=== PATIENT | male | born 1950 | race Caucasian/White ===

== ENCOUNTER 2019-07-14 13:23 | Inpatient (IN) ==
[2019-07-14] MEDS ORDERED: Furosemide 40 MG/4 ML VIAL IVP ONE (13:43)
[2019-07-14] MEDS ORDERED: predniSONE 20 MG TABLET PO ONE (13:43)
[2019-07-14 14:21] LABS: Bilirubin,Urine Negative (Negative); Blood,Urine Trace (Negative); Clarity,Urine Cloudy (Clear); Color,Urine Yellow (Yellow); Glucose,Urine (UA) 500 mg/dL (Normal); Ketones,Urine Negative (Negative); Leukocyte Esterase,Urine Negative (Negative); Nitrite,Urine Negative (Negative); Protein,Urine >=1000 mg/dL (Neg-Trace); Specific Gravity,Urine > 1.030 (1.010-1.025); Urobilinogen,Urine Normal (Normal)
[2019-07-14 14:25] LABS: Hyaline Casts,Urine Moderate per lpf (None-Few); Squamous Epithelial Cell,Urine Many per lpf (None-Few); WBC,Urine 15-30 per hpf (0-3)
[2019-07-14 14:46] LABS: Basophils # 0.1 K/mcL (0.0-0.2); Basophils % 0.6 %; Eosinophils # 0.3 K/mcL (0.0-0.6); Eosinophils % 3.2 %; Hematocrit 37.5 % (37.5-50.1); Hemoglobin 12.3 g/dL (12.9-16.9); Immature Granulocytes % 0.3 % (0-4); Lymphocytes # 1.5 K/mcL (0.6-4.6); Mean Corpuscular HGB Conc 32.8 g/dL (31.6-35.5); Mean Corpuscular Hemoglobin 32.2 pg (28.0-33.3); Mean Corpuscular Volume 98.2 fL (83.0-100.0); Mean Platelet Volume 10.1 fL (9.4-12.4); Monocytes # 0.9 K/mcL (0.0-1.3); Neutrophils # 6.6 K/mcL (1.6-8.9); Platelet Count 243 K/mcL (140-400); Red Blood Count 3.82 M/mcL (4.19-5.50); Red Cell Distribution Width 13.9 % (11.5-14.5); Segmented Neutrophils % 69.9 %; White Blood Count 9.4 K/mcL (4.3-11.1)
[2019-07-14 15:16] LABS: Bacteria,Urine Moderate per hpf (None-Few); Granular Casts,Urine Few per lpf (None Seen)
[2019-07-14 15:17] LABS: Albumin 2.2 g/dL (3.5-5.7); Albumin/Globulin Ratio 0.7 (1.1-2.2); Bilirubin,Total 0.1 mg/dL (0.3-1.0); Calcium 7.9 mg/dL (8.6-10.3); Globulin 3.1 g/dL (2.4-3.5); Potassium 4.6 mEq/L (3.5-5.1); Total Protein 5.3 g/dL (6.4-8.9)
[2019-07-14 15:21] LABS: RBC,Urine 0-3 per hpf (0-3)
[2019-07-14 15:23] LABS: Protein/Creatinine Ratio,Urine 28.9 mg/mg (0.00-0.20)
[2019-07-14] MEDS ORDERED: Naloxone 0.4 MG/ML INJ IVP PRN (16:06)
[2019-07-14] MEDS ORDERED: hydrALAZINE 25 MG TABLET PO PRN (16:08)
[2019-07-14] MEDS ORDERED: *HR* Labetalol 20 MG/4 ML SYRINGE IVP ONE (16:11)
[2019-07-14] MEDS: *HR* Heparin 5,000 UNIT/ML VIAL SQ SCH (18:02)
[2019-07-14] MEDS ORDERED: Perflutren Lipid Microsphere 1.3 ML in 0.9 % Sodium Chloride 8.7 ML IVP ONE (20:52)
[2019-07-14] MEDS ORDERED: Insulin DETEMIR 100 UNIT/ML X5UNITS SQ SCH (21:00)
[2019-07-14] MEDS: hydrALAZINE 25 MG TABLET PO SCH (21:05)
[2019-07-14] MEDS: Insulin DETEMIR 100 UNIT/ML X5UNITS SQ SCH (21:06)
[2019-07-14] MEDS: BuPROPion SR (12 HR) 100 MG TABLET PO SCH (21:06)
[2019-07-15] MEDS ORDERED: *HR* Metoprolol 5 MG/5 ML VIAL IVP ONE (00:43)
[2019-07-15] MEDS: *HR* HYDROcodone/Acet 5/325 mg TABLET PO PRN (01:09)
[2019-07-15 04:41] LABS: Basophils % 0.3 %; Hematocrit 37.8 % (37.5-50.1); Hemoglobin 12.2 g/dL (12.9-16.9); Immature Granulocytes % 0.4 % (0-4); Lymphocytes % 14.3 %; Mean Corpuscular HGB Conc 32.3 g/dL (31.6-35.5); Mean Corpuscular Hemoglobin 32.2 pg (28.0-33.3); Mean Corpuscular Volume 99.7 fL (83.0-100.0); Mean Platelet Volume 10.3 fL (9.4-12.4); Monocytes # 0.3 K/mcL (0.0-1.3); Monocytes % 3.8 %; Neutrophils # 5.9 K/mcL (1.6-8.9); Platelet Count 268 K/mcL (140-400); Red Blood Count 3.79 M/mcL (4.19-5.50); Red Cell Distribution Width 13.6 % (11.5-14.5); Segmented Neutrophils % 81.2 %; White Blood Count 7.2 K/mcL (4.3-11.1)
[2019-07-15 05:00] LABS: Calcium 7.6 mg/dL (8.6-10.3); Phosphorous 3.4 mg/dL (2.7-4.5); Potassium 4.7 mEq/L (3.5-5.1)
[2019-07-15] MEDS: *HR* Heparin 5,000 UNIT/ML VIAL SQ SCH ×2 (05:41→16:57)
[2019-07-15] MEDS ORDERED: Dextrose Gel 15 GM/37.5 ML TUBE PO PRN ×2 (07:38)
[2019-07-15] MEDS ORDERED: *HR* Dextrose 50 % in Water (Syg) 50 ML SYRINGE IVP PRN (07:38)
[2019-07-15] MEDS ORDERED: D5% in Water 1,000 ML IVC PRN (07:38)
[2019-07-15] MEDS: predniSONE 20 MG TABLET PO SCH (07:42)
[2019-07-15] MEDS: Aspirin Enteric Coated 81 MG Tablet PO SCH (07:42)
[2019-07-15] MEDS: BuPROPion SR (12 HR) 100 MG TABLET PO SCH ×2 (07:42→15:43)
[2019-07-15] MEDS: hydrALAZINE 25 MG TABLET PO SCH ×3 (07:42→21:30)
[2019-07-15] MEDS ORDERED: Albumin 25% 25gram/100mL 25 GM/100 ML IV.SOLN IVPB ONE (07:48)
[2019-07-15] MEDS ORDERED: EPA PO SCH (09:00)
[2019-07-15] MEDS ORDERED: amLODIPine 5 MG TABLET PO SCH (09:00)
[2019-07-15] MEDS ORDERED: OMEGA PO SCH (09:00)
[2019-07-15] MEDS ORDERED: DHA PO SCH (09:00)
[2019-07-15] MEDS ORDERED: FISH OIL PO SCH (09:00)
[2019-07-15] MEDS ORDERED: [UNRECOGNIZED DRUG - OTHER] PO SCH (09:00)
[2019-07-15] MEDS: Furosemide 40 MG/4 ML VIAL IVP SCH (09:29)
[2019-07-15] MEDS: Insulin DETEMIR 100 UNIT/ML X5UNITS SQ SCH (21:30)
[2019-07-16] MEDS: *HR* HYDROcodone/Acet 5/325 mg TABLET PO PRN (00:20)
[2019-07-16] MEDS: *HR* Heparin 5,000 UNIT/ML VIAL SQ SCH ×2 (05:54→17:03)
[2019-07-16] MEDS: predniSONE 20 MG TABLET PO SCH (07:51)
[2019-07-16] MEDS: Ergocalciferol (VIT D2) 50,000 UNIT (1.25MG) CAP PO SCH (07:51)
[2019-07-16] MEDS: hydrALAZINE 25 MG TABLET PO SCH ×3 (07:51→20:09)
[2019-07-16] MEDS: amLODIPine 5 MG TABLET PO SCH (07:51)
[2019-07-16] MEDS: Aspirin Enteric Coated 81 MG Tablet PO SCH (07:51)
[2019-07-16] MEDS: Furosemide 40 MG/4 ML VIAL IVP SCH (07:52)
[2019-07-16] MEDS: BuPROPion SR (12 HR) 100 MG TABLET PO SCH ×2 (07:55→16:06)
[2019-07-16 11:58] LABS: Calcium 7.7 mg/dL (8.6-10.3); Potassium 4.8 mEq/L (3.5-5.1)
[2019-07-16] MEDS ORDERED: NON-FORMULARY MEDICATION 1 EACH EACH (Dulaglutide [Trulicity] 1.5 MG) SQ SCH (16:08)
[2019-07-16] MEDS: Albumin 25% 25gram/100mL 25 GM/100 ML IV.SOLN IVPB SCH (17:14)
[2019-07-16] MEDS: Insulin DETEMIR 100 UNIT/ML X5UNITS SQ SCH (20:10)
[2019-07-17] MEDS: Albumin 25% 25gram/100mL 25 GM/100 ML IV.SOLN IVPB SCH ×3 (00:15→16:01)
[2019-07-17] MEDS: *HR* Heparin 5,000 UNIT/ML VIAL SQ SCH ×2 (05:49→16:00)
[2019-07-17 06:31] LABS: Albumin 2.7 g/dL (3.5-5.7); Albumin/Globulin Ratio 1.1 (1.1-2.2); Bilirubin,Total 0.2 mg/dL (0.3-1.0); Calcium 7.6 mg/dL (8.6-10.3); Globulin 2.5 g/dL (2.4-3.5); Potassium 4.5 mEq/L (3.5-5.1); Total Protein 5.2 g/dL (6.4-8.9)
[2019-07-17] MEDS: hydrALAZINE 25 MG TABLET PO SCH ×3 (07:30→20:04)
[2019-07-17] MEDS: predniSONE 20 MG TABLET PO SCH (07:31)
[2019-07-17] MEDS: amLODIPine 5 MG TABLET PO SCH (07:31)
[2019-07-17] MEDS: Furosemide 40 MG/4 ML VIAL IVP SCH ×2 (07:31→07:43)
[2019-07-17] MEDS: Aspirin Enteric Coated 81 MG Tablet PO SCH (07:31)
[2019-07-17] MEDS: BuPROPion SR (12 HR) 100 MG TABLET PO SCH ×2 (07:34→16:00)
[2019-07-17] MEDS: *HR* HYDROcodone/Acet 5/325 mg TABLET PO PRN (09:57)
[2019-07-17] MEDS ORDERED: Dextrose Gel 15 GM/37.5 ML TUBE PO PRN ×2 (16:32)
[2019-07-17] MEDS ORDERED: *HR* Dextrose 50 % in Water (Syg) 50 ML SYRINGE IVP PRN (16:32)
[2019-07-17] MEDS ORDERED: D5% in Water 1,000 ML IVC PRN (16:32)
[2019-07-17] MEDS: Insulin LISPRO 300 UNITS/3 ML VIAL SQ SCH (19:31)
[2019-07-17] MEDS: Insulin DETEMIR 100 UNIT/ML X5UNITS SQ SCH (20:04)
[2019-07-18 03:30] LABS: ABG Base Excess -7 mEq/L (-2 to 3); ABG HCO3 17 mEq/L (21-27); ABG Oxygen Saturation 94 % (95-98); ABG PCO2 31 mmHg (35-45); ABG PH 7.36 pH Units (7.32-7.45); ABG PO2 74 mmHg (85-104); ABG TCO2 18 mEq/L (20-26)
[2019-07-18] MEDS: Simethicone 80 MG TAB.CHEW PO PRN ×2 (03:43→22:35)
[2019-07-18 04:11] LABS: Adenovirus Not Detected (Not Detect); Bordetella Pertussis Not Detected (Not Detect); Chlamydophila pneumoniae Not Detected (Not Detect); Coronavirus 229E Not Detected (Not Detect); Coronavirus HKU1 Not Detected (Not Detect); Coronavirus NL63 Not Detected (Not Detect); Coronavirus OC43 Not Detected (Not Detect); Human Metapneumovirus Not Detected (Not Detect); Human Rhinovirus/Enterovirus Not Detected (Not Detect); Influenza A Subtype 2009 H1 Not Detected (Not Detect); Influenza A Untypeable Not Detected (Not Detect); Influenza B Not Detected (Not Detect); Mycoplasma pneumoniae Not Detected (Not Detect); Parainfluenza Virus 1 Not Detected (Not Detect); Parainfluenza Virus 2 Not Detected (Not Detect); Parainfluenza Virus 3 Not Detected (Not Detect); Parainfluenza Virus 4 Not Detected (Not Detect); Respiratory Syncytial Virus Not Detected (Not Detect)
[2019-07-18 04:58] LABS: Albumin 2.9 g/dL (3.5-5.7); Calcium 7.2 mg/dL (8.6-10.3); Phosphorous 4.1 mg/dL (2.7-4.5); Potassium 4.6 mEq/L (3.5-5.1)
[2019-07-18 05:08] LABS: Hematocrit 34.4 % (37.5-50.1); Hemoglobin 11.4 g/dL (12.9-16.9); Mean Corpuscular HGB Conc 33.1 g/dL (31.6-35.5); Mean Corpuscular Hemoglobin 31.8 pg (28.0-33.3); Mean Corpuscular Volume 96.1 fL (83.0-100.0); Mean Platelet Volume 10.1 fL (9.4-12.4); Platelet Count 310 K/mcL (140-400); Red Blood Count 3.58 M/mcL (4.19-5.50); Red Cell Distribution Width 13.9 % (11.5-14.5)
[2019-07-18] MEDS: *HR* Heparin 5,000 UNIT/ML VIAL SQ SCH ×2 (06:36→16:54)
[2019-07-18] MEDS: Insulin LISPRO 300 UNITS/3 ML VIAL SQ SCH ×3 (07:54→16:45)
[2019-07-18] MEDS ORDERED: Piperacillin/Tazobactam 3.375 GM in 0.9 % Sodium Chloride Mini Bag 100 ML IVPB SCH (08:00)
[2019-07-18] MEDS: BuPROPion SR (12 HR) 100 MG TABLET PO SCH ×2 (08:14→16:54)
[2019-07-18] MEDS: hydrALAZINE 25 MG TABLET PO SCH ×3 (08:14→20:48)
[2019-07-18] MEDS: Aspirin Enteric Coated 81 MG Tablet PO SCH (08:14)
[2019-07-18] MEDS: predniSONE 20 MG TABLET PO SCH (08:14)
[2019-07-18] MEDS: amLODIPine 5 MG TABLET PO SCH (08:14)
[2019-07-18] MEDS: Albumin 25% 25gram/100mL 25 GM/100 ML IV.SOLN IVPB SCH ×2 (08:16)
[2019-07-18] MEDS: Piperacillin/Tazobactam 3.375 GM in 0.9 % Sodium Chloride Mini Bag 100 ML IVPB SCH ×2 (14:59→23:52)
[2019-07-18] MEDS: Psyllium 1 PACKET POWD.PACK PO SCH ×2 (14:59→21:00)
[2019-07-18] MEDS ORDERED: Insulin DETEMIR 100 UNIT/ML X5UNITS SQ SCH (21:00)
[2019-07-18] MEDS: *HR* HYDROcodone/Acet 5/325 mg TABLET PO PRN (22:34)
[2019-07-19] MEDS: Simethicone 80 MG TAB.CHEW PO PRN ×2 (04:08→21:11)
[2019-07-19 04:41] LABS: Hematocrit 35.5 % (37.5-50.1); Hemoglobin 11.9 g/dL (12.9-16.9); Mean Corpuscular HGB Conc 33.5 g/dL (31.6-35.5); Mean Corpuscular Hemoglobin 31.6 pg (28.0-33.3); Mean Corpuscular Volume 94.2 fL (83.0-100.0); Mean Platelet Volume 10.3 fL (9.4-12.4); Platelet Count 324 K/mcL (140-400); Red Blood Count 3.77 M/mcL (4.19-5.50); White Blood Count 12.8 K/mcL (4.3-11.1)
[2019-07-19 05:00] LABS: Albumin 2.7 g/dL (3.5-5.7); Phosphorous 4.7 mg/dL (2.7-4.5)
[2019-07-19] MEDS: *HR* Heparin 5,000 UNIT/ML VIAL SQ SCH ×2 (06:00→18:02)
[2019-07-19] MEDS: *HR* HYDROcodone/Acet 5/325 mg TABLET PO PRN ×2 (06:03→16:53)
[2019-07-19] MEDS: Psyllium 1 PACKET POWD.PACK PO SCH ×3 (08:40→21:09)
[2019-07-19] MEDS: hydrALAZINE 25 MG TABLET PO SCH ×3 (08:43→21:05)
[2019-07-19] MEDS: Aspirin Enteric Coated 81 MG Tablet PO SCH (08:44)
[2019-07-19] MEDS: amLODIPine 5 MG TABLET PO SCH (08:44)
[2019-07-19] MEDS: predniSONE 20 MG TABLET PO SCH (08:44)
[2019-07-19] MEDS: Piperacillin/Tazobactam 3.375 GM in 0.9 % Sodium Chloride Mini Bag 100 ML IVPB SCH ×2 (08:47→18:13)
[2019-07-19] MEDS: Insulin LISPRO 300 UNITS/3 ML VIAL SQ SCH ×3 (08:48→16:46)
[2019-07-19] MEDS: BuPROPion SR (12 HR) 100 MG TABLET PO SCH ×2 (08:51→18:12)
[2019-07-19] MEDS ORDERED: 0.9 % Sodium Chloride 250 ML IVC PRN (12:27)
[2019-07-19] MEDS ORDERED: *HR* Heparin 10,000 UNIT/10 ML VIAL IV PRN (12:27)
[2019-07-19] MEDS ORDERED: 0.9 % Sodium Chloride 1,000 ML PRIME SCH (12:30)
[2019-07-19] MEDS ORDERED: Ondansetron 4 MG/2 ML VIAL ONE (13:24)
[2019-07-19] MEDS: Ondansetron 4 MG/2 ML VIAL IVP PRN (13:40)
[2019-07-19 13:49] LABS: Hepatitis B Surface Antibody 3.92 mIU/mL
[2019-07-19 14:00] LABS: Hepatitis B Surface Antigen Nonreactive (Nonreactive)
[2019-07-19] MEDS ORDERED: traMADol 50 MG TABLET PO ONE (20:16)
[2019-07-19] MEDS: Insulin DETEMIR 100 UNIT/ML X5UNITS SQ SCH (21:30)
[2019-07-20] MEDS: Piperacillin/Tazobactam 3.375 GM in 0.9 % Sodium Chloride Mini Bag 100 ML IVPB SCH ×4 (00:47→23:58)
[2019-07-20] MEDS: Simethicone 80 MG TAB.CHEW PO PRN ×2 (00:57→11:30)
[2019-07-20] MEDS: Ondansetron 4 MG/2 ML VIAL IVP PRN (01:05)
[2019-07-20] MEDS: *HR* Heparin 5,000 UNIT/ML VIAL SQ SCH ×2 (04:23→16:35)
[2019-07-20 04:53] LABS: Hematocrit 35.2 % (37.5-50.1); Hemoglobin 11.6 g/dL (12.9-16.9); Mean Corpuscular Hemoglobin 31.9 pg (28.0-33.3); Mean Corpuscular Volume 96.7 fL (83.0-100.0); Mean Platelet Volume 10.4 fL (9.4-12.4); Platelet Count 307 K/mcL (140-400); Red Blood Count 3.64 M/mcL (4.19-5.50); Red Cell Distribution Width 13.9 % (11.5-14.5); White Blood Count 12.3 K/mcL (4.3-11.1)
[2019-07-20 05:08] LABS: Albumin 2.5 g/dL (3.5-5.7)
[2019-07-20] MEDS ORDERED: *HR* Heparin 10,000 UNIT/10 ML VIAL IV PRN (07:35)
[2019-07-20] MEDS ORDERED: 0.9 % Sodium Chloride 250 ML IVC PRN (07:35)
[2019-07-20] MEDS ORDERED: 0.9 % Sodium Chloride 1,000 ML PRIME SCH (07:45)
[2019-07-20] MEDS: Insulin LISPRO 300 UNITS/3 ML VIAL SQ SCH ×3 (07:51→16:35)
[2019-07-20] MEDS: Aspirin Enteric Coated 81 MG Tablet PO SCH (07:51)
[2019-07-20] MEDS: predniSONE 20 MG TABLET PO SCH (07:51)
[2019-07-20] MEDS: amLODIPine 5 MG TABLET PO SCH (07:51)
[2019-07-20] MEDS: hydrALAZINE 25 MG TABLET PO SCH ×3 (07:51→21:16)
[2019-07-20] MEDS: Psyllium 1 PACKET POWD.PACK PO SCH ×3 (07:52→21:18)
[2019-07-20] MEDS: BuPROPion SR (12 HR) 100 MG TABLET PO SCH ×2 (07:58→16:34)
[2019-07-20] MEDS: Insulin DETEMIR 100 UNIT/ML X5UNITS SQ SCH (21:17)
[2019-07-21 04:50] LABS: Hematocrit 32.8 % (37.5-50.1); Hemoglobin 11.1 g/dL (12.9-16.9); Mean Corpuscular HGB Conc 33.8 g/dL (31.6-35.5); Mean Corpuscular Hemoglobin 31.3 pg (28.0-33.3); Mean Corpuscular Volume 92.4 fL (83.0-100.0); Mean Platelet Volume 10.3 fL (9.4-12.4); Platelet Count 297 K/mcL (140-400); Red Blood Count 3.55 M/mcL (4.19-5.50); Red Cell Distribution Width 13.8 % (11.5-14.5); White Blood Count 13.4 K/mcL (4.3-11.1)
[2019-07-21 05:04] LABS: Albumin 2.4 g/dL (3.5-5.7); Calcium 6.7 mg/dL (8.6-10.3); Phosphorous 4.7 mg/dL (2.7-4.5); Potassium 4.5 mEq/L (3.5-5.1)
[2019-07-21] MEDS: *HR* Heparin 5,000 UNIT/ML VIAL SQ SCH ×2 (06:17→16:40)
[2019-07-21] MEDS: Insulin LISPRO 300 UNITS/3 ML VIAL SQ SCH ×3 (07:40→16:39)
[2019-07-21] MEDS: Aspirin Enteric Coated 81 MG Tablet PO SCH (07:41)
[2019-07-21] MEDS: Piperacillin/Tazobactam 3.375 GM in 0.9 % Sodium Chloride Mini Bag 100 ML IVPB SCH ×2 (07:41→15:45)
[2019-07-21] MEDS: hydrALAZINE 25 MG TABLET PO SCH ×3 (07:41→20:10)
[2019-07-21] MEDS: predniSONE 20 MG TABLET PO SCH (07:41)
[2019-07-21] MEDS: amLODIPine 5 MG TABLET PO SCH (07:42)
[2019-07-21] MEDS: Psyllium 1 PACKET POWD.PACK PO SCH ×3 (07:42→20:10)
[2019-07-21] MEDS: BuPROPion SR (12 HR) 100 MG TABLET PO SCH ×2 (07:44→16:40)
[2019-07-21] MEDS ORDERED: 0.9 % Sodium Chloride 250 ML IVC PRN (07:56)
[2019-07-21] MEDS ORDERED: *HR* Heparin 10,000 UNIT/10 ML VIAL IV PRN ×2 (07:56)
[2019-07-21 11:17] LABS: Alpha 2 Globulin (PEP) 1.24 g/dL (0.48-1.05); Beta Globulin (PEP) 0.48 g/dL (0.48-1.10)
[2019-07-21] MEDS: Simethicone 80 MG TAB.CHEW PO PRN (20:10)
[2019-07-21] MEDS: Insulin DETEMIR 100 UNIT/ML X5UNITS SQ SCH (20:19)
[2019-07-22] MEDS: Piperacillin/Tazobactam 3.375 GM in 0.9 % Sodium Chloride Mini Bag 100 ML IVPB SCH ×4 (00:40→23:46)
[2019-07-22] MEDS: Simethicone 80 MG TAB.CHEW PO PRN ×3 (00:43→22:04)
[2019-07-22] MEDS: *HR* Heparin 5,000 UNIT/ML VIAL SQ SCH ×2 (05:24→17:31)
[2019-07-22 05:50] LABS: Hematocrit 32.6 % (37.5-50.1); Hemoglobin 10.9 g/dL (12.9-16.9); Mean Corpuscular HGB Conc 33.4 g/dL (31.6-35.5); Mean Corpuscular Hemoglobin 31.5 pg (28.0-33.3); Mean Corpuscular Volume 94.2 fL (83.0-100.0); Mean Platelet Volume 10.4 fL (9.4-12.4); Platelet Count 271 K/mcL (140-400); Red Blood Count 3.46 M/mcL (4.19-5.50); Red Cell Distribution Width 13.8 % (11.5-14.5)
[2019-07-22 06:21] LABS: Calcium 6.9 mg/dL (8.6-10.3); Potassium 4.2 mEq/L (3.5-5.1)
[2019-07-22] MEDS: Insulin LISPRO 300 UNITS/3 ML VIAL SQ SCH ×3 (08:17→17:21)
[2019-07-22] MEDS: Psyllium 1 PACKET POWD.PACK PO SCH (08:21)
[2019-07-22] MEDS: amLODIPine 5 MG TABLET PO SCH (08:39)
[2019-07-22] MEDS: predniSONE 20 MG TABLET PO SCH (08:39)
[2019-07-22] MEDS: Aspirin Enteric Coated 81 MG Tablet PO SCH (08:39)
[2019-07-22] MEDS: hydrALAZINE 25 MG TABLET PO SCH ×3 (08:39→21:20)
[2019-07-22] MEDS: BuPROPion SR (12 HR) 100 MG TABLET PO SCH ×2 (08:40→17:20)
[2019-07-22 09:53] LABS: IFE Reflexed IFE Done
[2019-07-22 09:54] LABS: Immunoglobulin A 238 mg/dL (68-408); Immunoglobulin G 262 mg/dL (768-1632); Immunoglobulin M 83 mg/dL (35-263)
[2019-07-22 17:53] LABS: Protein/Creatinine Ratio,Urine 19.62 mg/mg (0.00-0.20)
[2019-07-22] MEDS: Insulin DETEMIR 100 UNIT/ML X5UNITS SQ SCH (21:21)
[2019-07-23 04:57] LABS: Basophils % 0.2 %; Hematocrit 30.8 % (37.5-50.1); Hemoglobin 10.2 g/dL (12.9-16.9); Immature Granulocytes % 1.1 % (0-4); Lymphocytes % 7.9 %; Mean Corpuscular HGB Conc 33.1 g/dL (31.6-35.5); Mean Corpuscular Hemoglobin 31.8 pg (28.0-33.3); Mean Platelet Volume 10.9 fL (9.4-12.4); Monocytes # 1.3 K/mcL (0.0-1.3); Neutrophils # 10.6 K/mcL (1.6-8.9); Platelet Count 261 K/mcL (140-400); Red Blood Count 3.21 M/mcL (4.19-5.50); Red Cell Distribution Width 13.7 % (11.5-14.5); Segmented Neutrophils % 80.8 %; White Blood Count 13.1 K/mcL (4.3-11.1)
[2019-07-23 05:05] LABS: Calcium 6.8 mg/dL (8.6-10.3); Potassium 4.3 mEq/L (3.5-5.1)
[2019-07-23] MEDS: Simethicone 80 MG TAB.CHEW PO PRN (05:19)
[2019-07-23] MEDS: *HR* Heparin 5,000 UNIT/ML VIAL SQ SCH ×2 (05:19→16:54)
[2019-07-23] MEDS: Insulin LISPRO 300 UNITS/3 ML VIAL SQ SCH ×3 (08:03→16:41)
[2019-07-23] MEDS: amLODIPine 5 MG TABLET PO SCH (08:15)
[2019-07-23] MEDS: BuPROPion SR (12 HR) 100 MG TABLET PO SCH ×2 (08:16→16:38)
[2019-07-23] MEDS: predniSONE 20 MG TABLET PO SCH (08:16)
[2019-07-23] MEDS: hydrALAZINE 25 MG TABLET PO SCH ×3 (08:16→21:28)
[2019-07-23] MEDS: Aspirin Enteric Coated 81 MG Tablet PO SCH (08:16)
[2019-07-23] MEDS: Psyllium 1 PACKET POWD.PACK PO SCH (08:17)
[2019-07-23] MEDS: Piperacillin/Tazobactam 3.375 GM in 0.9 % Sodium Chloride Mini Bag 100 ML IVPB SCH ×2 (08:18→21:29)
[2019-07-23] MEDS: Ergocalciferol (VIT D2) 50,000 UNIT (1.25MG) CAP PO SCH (08:25)
[2019-07-23] MEDS ORDERED: *HR* Heparin 10,000 UNIT/10 ML VIAL IV PRN ×2 (08:32)
[2019-07-23] MEDS ORDERED: 0.9 % Sodium Chloride 250 ML IVC PRN (08:32)
[2019-07-23] MEDS: Insulin DETEMIR 100 UNIT/ML X5UNITS SQ SCH (21:28)
[2019-07-24] MEDS: *HR* Heparin 5,000 UNIT/ML VIAL SQ SCH ×2 (06:12→17:22)
[2019-07-24] MEDS: predniSONE 20 MG TABLET PO SCH (08:20)
[2019-07-24] MEDS: hydrALAZINE 25 MG TABLET PO SCH ×3 (08:20→21:17)
[2019-07-24] MEDS: BuPROPion SR (12 HR) 100 MG TABLET PO SCH ×2 (08:20→17:22)
[2019-07-24] MEDS: amLODIPine 5 MG TABLET PO SCH (08:20)
[2019-07-24] MEDS: Psyllium 1 PACKET POWD.PACK PO SCH (08:21)
[2019-07-24] MEDS: Piperacillin/Tazobactam 3.375 GM in 0.9 % Sodium Chloride Mini Bag 100 ML IVPB SCH ×2 (08:21→21:18)
[2019-07-24] MEDS: Insulin LISPRO 300 UNITS/3 ML VIAL SQ SCH ×3 (08:21→17:22)
[2019-07-24] MEDS ORDERED: traZODone 50 MG TABLET PO SCH (21:00)
[2019-07-24] MEDS: Insulin DETEMIR 100 UNIT/ML X5UNITS SQ SCH (21:17)
[2019-07-25 04:09] LABS: Immature Platelets 5.5 % (1.1-6.1); Mean Corpuscular Hemoglobin 33.3 pg (28.0-33.3); Mean Platelet Volume 11.3 fL (9.4-12.4); Platelet Count 203 K/mcL (140-400); Red Blood Count 1.47 M/mcL (4.19-5.50); White Blood Count 19.1 K/mcL (4.3-11.1)
[2019-07-25 04:36] LABS: Blood Urea Nitrogen > 130 mg/dL (8-23); Calcium 6.1 mg/dL (8.6-10.3); Carbon Dioxide 22 mEq/L (23-29); Chloride 99 mEq/L (98-107); Glucose 351 mg/dL (70-105); Potassium 4.6 mEq/L (3.5-5.1); Sodium 131 mEq/L (136-145); eGFR For African Americans 11 (> 60); eGFR For Non-African Americans 9 (> 60)
[2019-07-25 04:38] LABS: Hematocrit 14.4 % (37.5-50.1); Hemoglobin 4.9 g/dL (12.9-16.9)
[2019-07-25 05:15] LABS: Red Cell Distribution Width 13.9 % (11.5-14.5)
[2019-07-25 05:17] LABS: Mean Corpuscular HGB Conc 32.9 g/dL (31.6-35.5); Mean Corpuscular Volume 97.3 fL (83.0-100.0); Mean Platelet Volume 11.8 fL (9.4-12.4); Platelet Count 196 K/mcL (140-400); White Blood Count 19.7 K/mcL (4.3-11.1)
[2019-07-25 05:41] LABS: Hematocrit 14.6 % (37.5-50.1); Hemoglobin 4.8 g/dL (12.9-16.9)
[2019-07-25] MEDS: *HR* Heparin 5,000 UNIT/ML VIAL SQ SCH (05:49)
[2019-07-25 06:11] LABS: Basophils # 0.2 K/mcL (0.0-0.2); Monocytes # 1.4 K/mcL (0.0-1.3); Neutrophils # 16.2 K/mcL (1.6-8.9); Platelet Estimate Normal (Normal)
[2019-07-25 06:15] LABS: Basophils # 0.2 K/mcL (0.0-0.2); Lymphocytes # 1.3 K/mcL (0.6-4.6); Monocytes # 1.3 K/mcL (0.0-1.3); Neutrophils # 16.2 K/mcL (1.6-8.9)
[2019-07-25 06:16] LABS: Platelet Estimate Normal (Normal)
[2019-07-25 06:26] LABS: Mean Corpuscular HGB Conc 33.6 g/dL (31.6-35.5)
[2019-07-25 06:27] LABS: Mean Corpuscular Hemoglobin 32.8 pg (28.0-33.3); Mean Corpuscular Volume 97.8 fL (83.0-100.0); Mean Platelet Volume 11.9 fL (9.4-12.4); Nucleated Red Blood Cells 0.3 /100 WBC (0); Platelet Count 201 K/mcL (140-400); Red Blood Count 1.37 M/mcL (4.19-5.50); Red Cell Distribution Width 14.1 % (11.5-14.5); White Blood Count 18.9 K/mcL (4.3-11.1)
[2019-07-25 06:41] LABS: Hematocrit 13.4 % (37.5-50.1); Hemoglobin 4.5 g/dL (12.9-16.9)
[2019-07-25 07:16] LABS: Lymphocytes # 2.5 K/mcL (0.6-4.6); Monocytes # 0.6 K/mcL (0.0-1.3); Neutrophils # 15.9 K/mcL (1.6-8.9)
[2019-07-25 07:17] LABS: Platelet Estimate Normal (Normal)
[2019-07-25] MEDS ORDERED: Ondansetron 4 MG/2 ML VIAL IVP PRN (07:43)
[2019-07-25] MEDS ORDERED: Dextrose Gel 15 GM/37.5 ML TUBE PO PRN ×2 (07:43)
[2019-07-25] MEDS ORDERED: D5% in Water 1,000 ML IVC PRN (07:43)
[2019-07-25] MEDS ORDERED: Simethicone 80 MG TAB.CHEW PO PRN (07:43)
[2019-07-25] MEDS ORDERED: *HR* Dextrose 50 % in Water (Syg) 50 ML SYRINGE IVP PRN (07:43)
[2019-07-25] MEDS ORDERED: Naloxone 0.4 MG/ML INJ IVP PRN (07:43)
[2019-07-25] MEDS ORDERED: *HR* Heparin 10,000 UNIT/10 ML VIAL IV PRN ×2 (07:43→09:28)
[2019-07-25] MEDS ORDERED: 0.9 % Sodium Chloride 1,000 ML PRIME SCH ×2 (07:43→09:30)
[2019-07-25] MEDS ORDERED: 0.9 % Sodium Chloride 250 ML IVC PRN ×3 (07:43→09:28)
[2019-07-25] MEDS ORDERED: Piperacillin/Tazobactam 3.375 GM in 0.9 % Sodium Chloride Mini Bag 100 ML IVPB SCH (08:00)
[2019-07-25 11:26] LABS: Prothrombin Time 11.4 Seconds (9.4-12.1)
[2019-07-25] MEDS ORDERED: 0.9 % Sodium Chloride 250 ML ONE (11:27)
[2019-07-25] MEDS: Psyllium 1 PACKET POWD.PACK PO SCH (12:13)
[2019-07-25] MEDS: hydrALAZINE 25 MG TABLET PO SCH ×3 (12:13→20:25)
[2019-07-25] MEDS: BuPROPion SR (12 HR) 100 MG TABLET PO SCH ×2 (12:13→16:50)
[2019-07-25] MEDS: amLODIPine 5 MG TABLET PO SCH (12:14)
[2019-07-25] MEDS: predniSONE 20 MG TABLET PO SCH (12:14)
[2019-07-25] MEDS: Insulin LISPRO 300 UNITS/3 ML VIAL SQ SCH ×2 (12:33→17:49)
[2019-07-25] MEDS: Pantoprazole 40 MG VIAL IVP SCH ×2 (12:33→18:22)
[2019-07-25 15:53] LABS: Hematocrit 29.9 % (37.5-50.1)
[2019-07-25 15:55] LABS: Hemoglobin 10.5 g/dL (12.9-16.9)
[2019-07-25] MEDS ORDERED: Acyclovir 500 MG in D5% in Water 100 ML IVPB SCH (16:00)
[2019-07-25] MEDS ORDERED: *HR* Midazolam HCl 2 MG/2 ML VIAL ONE (16:54)
[2019-07-25] MEDS ORDERED: *HR* FentaNYL (PF) 100 MCG/2 ML VIAL ONE (16:55)
[2019-07-25] MEDS ORDERED: 0.9 % Sodium Chloride 500 ML ONE (16:55)
[2019-07-25] MEDS ORDERED: *HR* Midazolam HCl 5 MG/5 ML VIAL IVP ONE ×2 (16:57→16:59)
[2019-07-25] MEDS ORDERED: Simethicone 40 MG/0.6 ML MLS IR ONE (16:59)
[2019-07-25] MEDS ORDERED: *HR* FentaNYL (PF) 100 MCG/2 ML VIAL IVP ONE (16:59)
[2019-07-25 22:19] LABS: Hematocrit 26.2 % (37.5-50.1); Hemoglobin 9.3 g/dL (12.9-16.9)
[2019-07-25] MEDS: Insulin DETEMIR 100 UNIT/ML X5UNITS SQ SCH (22:37)
[2019-07-25] MEDS: traZODone 50 MG TABLET PO SCH (22:37)
[2019-07-26] MEDS: *HR* HYDROcodone/Acet 5/325 mg TABLET PO PRN (02:19)
[2019-07-26 04:43] LABS: Basophils % 0.2 %; Eosinophils # 0.1 K/mcL (0.0-0.6); Eosinophils % 0.3 %; Hematocrit 22.6 % (37.5-50.1); Hemoglobin 7.9 g/dL (12.9-16.9); Immature Granulocytes % 4.6 % (0-4); Lymphocytes % 8.8 %; Mean Corpuscular Hemoglobin 33.3 pg (28.0-33.3); Mean Corpuscular Volume 95.4 fL (83.0-100.0); Mean Platelet Volume 11.7 fL (9.4-12.4); Monocytes # 2.4 K/mcL (0.0-1.3); Monocytes % 10.4 %; Neutrophils # 17.1 K/mcL (1.6-8.9); Nucleated Red Blood Cells 0.3 /100 WBC (0); Platelet Count 165 K/mcL (140-400); Red Blood Count 2.37 M/mcL (4.19-5.50); Red Cell Distribution Width 14.8 % (11.5-14.5); Segmented Neutrophils % 75.7 %; White Blood Count 22.6 K/mcL (4.3-11.1)
[2019-07-26 04:57] LABS: Calcium 6.4 mg/dL (8.6-10.3); Potassium 4.2 mEq/L (3.5-5.1)
[2019-07-26] MEDS: Pantoprazole 40 MG VIAL IVP SCH ×2 (05:52→16:56)
[2019-07-26] MEDS: amLODIPine 5 MG TABLET PO SCH (08:42)
[2019-07-26] MEDS: predniSONE 20 MG TABLET PO SCH (08:42)
[2019-07-26] MEDS: hydrALAZINE 25 MG TABLET PO SCH ×3 (08:43→21:03)
[2019-07-26] MEDS: Fluconazole 100 MG TABLET PO SCH (08:43)
[2019-07-26] MEDS: Psyllium 1 PACKET POWD.PACK PO SCH (08:44)
[2019-07-26] MEDS: BuPROPion SR (12 HR) 100 MG TABLET PO SCH ×2 (08:44→16:57)
[2019-07-26] MEDS: Insulin LISPRO 300 UNITS/3 ML VIAL SQ SCH ×3 (08:46→16:58)
[2019-07-26 10:40] LABS: Hematocrit 20.3 % (37.5-50.1); Hemoglobin 6.9 g/dL (12.9-16.9)
[2019-07-26] MEDS ORDERED: 0.9 % Sodium Chloride 250 ML IVC PRN (12:33)
[2019-07-26] MEDS ORDERED: *HR* Heparin 10,000 UNIT/10 ML VIAL IV PRN (12:33)
[2019-07-26] MEDS ORDERED: 0.9 % Sodium Chloride 1,000 ML PRIME SCH (12:45)
[2019-07-26] MEDS ORDERED: 0.9 % Sodium Chloride 250 ML ONE (13:20)
[2019-07-26] MEDS: valACYclovir 500 MG TABLET PO SCH (16:50)
[2019-07-26 17:17] LABS: Hematocrit 34.3 % (37.5-50.1)
[2019-07-26] MEDS: Insulin DETEMIR 100 UNIT/ML X5UNITS SQ SCH (21:03)
[2019-07-26] MEDS: traZODone 50 MG TABLET PO SCH (21:03)
[2019-07-26 22:42] LABS: Hematocrit 28.1 % (37.5-50.1)
[2019-07-26 22:44] LABS: Hemoglobin 9.8 g/dL (12.9-16.9)
[2019-07-27 00:49] LABS: Kappa Qnt Free Light Chains 8.13 mg/dL (0.33-1.94); Lambda Qnt Free Light Chains 3.42 mg/dL (0.57-2.63)
[2019-07-27 05:03] LABS: Hematocrit 28.5 % (37.5-50.1); Hemoglobin 9.9 g/dL (12.9-16.9)
[2019-07-27] MEDS: Pantoprazole 40 MG VIAL IVP SCH (06:28)
[2019-07-27] MEDS: predniSONE 20 MG TABLET PO SCH (08:22)
[2019-07-27] MEDS: hydrALAZINE 25 MG TABLET PO SCH ×3 (08:22→21:31)
[2019-07-27] MEDS: amLODIPine 5 MG TABLET PO SCH (08:22)
[2019-07-27] MEDS: Insulin LISPRO 300 UNITS/3 ML VIAL SQ SCH ×3 (08:22→17:58)
[2019-07-27] MEDS: Fluconazole 100 MG TABLET PO SCH (08:22)
[2019-07-27] MEDS: Psyllium 1 PACKET POWD.PACK PO SCH (08:37)
[2019-07-27 08:39] LABS: Calcium 6.4 mg/dL (8.6-10.3); Potassium 4.2 mEq/L (3.5-5.1)
[2019-07-27] MEDS: BuPROPion SR (12 HR) 100 MG TABLET PO SCH ×2 (09:49→18:44)
[2019-07-27 10:46] LABS: Hemoglobin 9.4 g/dL (12.9-16.9)
[2019-07-27] MEDS ORDERED: *HR* Heparin 10,000 UNIT/10 ML VIAL IV PRN (13:45)
[2019-07-27] MEDS ORDERED: 0.9 % Sodium Chloride 250 ML IVC PRN (13:45)
[2019-07-27] MEDS: valACYclovir 500 MG TABLET PO SCH (18:41)
[2019-07-27 19:50] LABS: Hematocrit 32.3 % (37.5-50.1)
[2019-07-27 19:59] LABS: Hemoglobin 11.4 g/dL (12.9-16.9)
[2019-07-27] MEDS ORDERED: Insulin DETEMIR 100 UNIT/ML X5UNITS SQ SCH (21:00)
[2019-07-27] MEDS: traZODone 50 MG TABLET PO SCH (21:31)
[2019-07-28] MEDS: hydrALAZINE 25 MG TABLET PO SCH ×3 (08:02→21:00)
[2019-07-28] MEDS: Fluconazole 100 MG TABLET PO SCH (08:03)
[2019-07-28] MEDS: amLODIPine 5 MG TABLET PO SCH (08:03)
[2019-07-28] MEDS: BuPROPion SR (12 HR) 100 MG TABLET PO SCH ×2 (08:03→17:13)
[2019-07-28] MEDS: Psyllium 1 PACKET POWD.PACK PO SCH ×2 (08:04→08:06)
[2019-07-28] MEDS ORDERED: *HR* Heparin 10,000 UNIT/10 ML VIAL IV PRN (08:07)
[2019-07-28] MEDS ORDERED: 0.9 % Sodium Chloride 250 ML IVC PRN (08:07)
[2019-07-28] MEDS: Insulin LISPRO 300 UNITS/3 ML VIAL SQ SCH ×3 (08:12→17:14)
[2019-07-28 08:49] LABS: Hematocrit 29.7 % (37.5-50.1); Hemoglobin 10.2 g/dL (12.9-16.9); Mean Corpuscular HGB Conc 34.3 g/dL (31.6-35.5); Mean Corpuscular Hemoglobin 32.4 pg (28.0-33.3); Mean Corpuscular Volume 94.3 fL (83.0-100.0); Mean Platelet Volume 12.1 fL (9.4-12.4); Platelet Count 147 K/mcL (140-400); Red Blood Count 3.15 M/mcL (4.19-5.50); Red Cell Distribution Width 14.8 % (11.5-14.5); White Blood Count 20.5 K/mcL (4.3-11.1)
[2019-07-28 09:06] LABS: Calcium 6.6 mg/dL (8.6-10.3); Potassium 3.9 mEq/L (3.5-5.1)
[2019-07-28] MEDS: valACYclovir 500 MG TABLET PO SCH (17:13)
[2019-07-28 18:10] LABS: VBG Ionized Calcium 0.86 mmol/L (1.15-1.35)
[2019-07-28] MEDS: traZODone 50 MG TABLET PO SCH (21:00)
[2019-07-28] MEDS ORDERED: Insulin DETEMIR 100 UNIT/ML X5UNITS SQ SCH (21:00)
[2019-07-29 05:17] LABS: Hematocrit 27.2 % (37.5-50.1); Hemoglobin 9.3 g/dL (12.9-16.9); Mean Corpuscular HGB Conc 34.2 g/dL (31.6-35.5); Mean Corpuscular Hemoglobin 32.7 pg (28.0-33.3); Mean Corpuscular Volume 95.8 fL (83.0-100.0); Mean Platelet Volume 12.4 fL (9.4-12.4); Platelet Count 136 K/mcL (140-400); Red Blood Count 2.84 M/mcL (4.19-5.50); Red Cell Distribution Width 14.7 % (11.5-14.5); White Blood Count 13.5 K/mcL (4.3-11.1)
[2019-07-29 05:43] LABS: Calcium 6.3 mg/dL (8.6-10.3)
[2019-07-29] MEDS ORDERED: *HR* Heparin 10,000 UNIT/10 ML VIAL IV PRN ×2 (08:06)
[2019-07-29] MEDS ORDERED: 0.9 % Sodium Chloride 250 ML IVC PRN (08:06)
[2019-07-29] MEDS ORDERED: 0.9 % Sodium Chloride 1,000 ML PRIME SCH (08:15)
[2019-07-29] MEDS ORDERED: Heparin 1,000 UNITS/500 mL 500 ML ONE (08:46)
[2019-07-29] MEDS: Insulin LISPRO 300 UNITS/3 ML VIAL SQ SCH ×3 (08:52→16:33)
[2019-07-29] MEDS: Fluconazole 100 MG TABLET PO SCH (09:01)
[2019-07-29] MEDS: Psyllium 1 PACKET POWD.PACK PO SCH (09:01)
[2019-07-29] MEDS: hydrALAZINE 25 MG TABLET PO SCH ×3 (09:02→20:34)
[2019-07-29] MEDS: Insulin DETEMIR 100 UNIT/ML X5UNITS SQ SCH ×2 (12:41→20:35)
[2019-07-29] MEDS: amLODIPine 5 MG TABLET PO SCH (12:55)
[2019-07-29] MEDS: BuPROPion SR (12 HR) 100 MG TABLET PO SCH ×2 (12:55→16:24)
[2019-07-29] MEDS: *HR* HYDROcodone/Acet 5/325 mg TABLET PO PRN (14:02)
[2019-07-29] MEDS ORDERED: *HR* FentaNYL (PF) 100 MCG/2 ML VIAL ONE (14:52)
[2019-07-29] MEDS ORDERED: *HR* Midazolam HCl 2 MG/2 ML VIAL IVP ONE (14:53)
[2019-07-29] MEDS ORDERED: *HR* FentaNYL (PF) 100 MCG/2 ML VIAL IVP ONE (14:53)
[2019-07-29] MEDS ORDERED: *HR* Midazolam HCl 2 MG/2 ML VIAL ONE (14:53)
[2019-07-29] MEDS ORDERED: 0.9 % Sodium Chloride 500 ML ONE (14:53)
[2019-07-29] MEDS ORDERED: CeFAZolin Premix DUPLEX 2,000 MG/50 ML BAG IVPB ONE (15:30)
[2019-07-29] MEDS ORDERED: *HR* Heparin 5,000 UNIT/ML VIAL ONE (15:33)
[2019-07-29] MEDS: valACYclovir 500 MG TABLET PO SCH (16:24)
[2019-07-29] MEDS: traZODone 50 MG TABLET PO SCH (20:34)
[2019-07-30 05:47] LABS: Hemoglobin 9.9 g/dL (12.9-16.9); Mean Corpuscular HGB Conc 34.1 g/dL (31.6-35.5); Mean Corpuscular Hemoglobin 32.2 pg (28.0-33.3); Mean Corpuscular Volume 94.5 fL (83.0-100.0); Mean Platelet Volume 11.5 fL (9.4-12.4); Platelet Count 140 K/mcL (140-400); Red Blood Count 3.07 M/mcL (4.19-5.50); Red Cell Distribution Width 14.9 % (11.5-14.5); White Blood Count 13.3 K/mcL (4.3-11.1)
[2019-07-30 06:59] LABS: Calcium 6.9 mg/dL (8.6-10.3); Potassium 4.1 mEq/L (3.5-5.1)
[2019-07-30] MEDS ORDERED: 0.9 % Sodium Chloride 250 ML IVC PRN (07:07)
[2019-07-30] MEDS: amLODIPine 5 MG TABLET PO SCH (07:32)
[2019-07-30] MEDS: hydrALAZINE 25 MG TABLET PO SCH ×3 (07:32→20:44)
[2019-07-30] MEDS: Fluconazole 100 MG TABLET PO SCH (07:32)
[2019-07-30] MEDS: Insulin DETEMIR 100 UNIT/ML X5UNITS SQ SCH ×2 (07:33→20:44)
[2019-07-30] MEDS: Psyllium 1 PACKET POWD.PACK PO SCH (07:33)
[2019-07-30] MEDS: Insulin LISPRO 300 UNITS/3 ML VIAL SQ SCH ×3 (07:33→17:42)
[2019-07-30] MEDS: BuPROPion SR (12 HR) 100 MG TABLET PO SCH ×2 (08:30→17:42)
[2019-07-30] MEDS ORDERED: Ergocalciferol (VIT D2) 50,000 UNIT (1.25MG) CAP PO SCH (09:00)
[2019-07-30] MEDS: valACYclovir 500 MG TABLET PO SCH (14:58)
[2019-07-30] MEDS: *HR* HYDROcodone/Acet 5/325 mg TABLET PO PRN (17:46)
[2019-07-30] MEDS: traZODone 50 MG TABLET PO SCH (20:44)
[2019-07-31 04:29] LABS: Hematocrit 27.9 % (37.5-50.1); Hemoglobin 9.2 g/dL (12.9-16.9); Mean Corpuscular Hemoglobin 31.8 pg (28.0-33.3); Mean Corpuscular Volume 96.5 fL (83.0-100.0); Mean Platelet Volume 11.5 fL (9.4-12.4); Platelet Count 137 K/mcL (140-400); Red Blood Count 2.89 M/mcL (4.19-5.50); Red Cell Distribution Width 14.7 % (11.5-14.5); White Blood Count 12.7 K/mcL (4.3-11.1)
[2019-07-31] MEDS: *HR* HYDROcodone/Acet 5/325 mg TABLET PO PRN ×2 (04:35→18:26)
[2019-07-31 04:50] LABS: Calcium 6.7 mg/dL (8.6-10.3); Potassium 4.1 mEq/L (3.5-5.1)
[2019-07-31] MEDS: Insulin LISPRO 300 UNITS/3 ML VIAL SQ SCH ×3 (07:55→16:37)
[2019-07-31] MEDS: Insulin DETEMIR 100 UNIT/ML X5UNITS SQ SCH ×2 (07:55→20:51)
[2019-07-31] MEDS: hydrALAZINE 25 MG TABLET PO SCH ×3 (07:56→20:00)
[2019-07-31] MEDS: Fluconazole 100 MG TABLET PO SCH (07:56)
[2019-07-31] MEDS: BuPROPion SR (12 HR) 100 MG TABLET PO SCH ×2 (07:56→16:37)
[2019-07-31] MEDS: amLODIPine 5 MG TABLET PO SCH (07:56)
[2019-07-31] MEDS: Psyllium 1 PACKET POWD.PACK PO SCH (07:57)
[2019-07-31] MEDS: valACYclovir 500 MG TABLET PO SCH (16:37)
[2019-07-31] MEDS: traZODone 50 MG TABLET PO SCH (20:51)
[2019-08-01 06:39] LABS: Hematocrit 28.5 % (37.5-50.1); Hemoglobin 9.5 g/dL (12.9-16.9); Mean Corpuscular HGB Conc 33.3 g/dL (31.6-35.5); Mean Corpuscular Hemoglobin 32.2 pg (28.0-33.3); Mean Corpuscular Volume 96.6 fL (83.0-100.0); Mean Platelet Volume 10.8 fL (9.4-12.4); Platelet Count 168 K/mcL (140-400); Red Blood Count 2.95 M/mcL (4.19-5.50); Red Cell Distribution Width 15.1 % (11.5-14.5)
[2019-08-01 06:59] LABS: Calcium 7.1 mg/dL (8.6-10.3); Potassium 3.9 mEq/L (3.5-5.1)
[2019-08-01] MEDS ORDERED: 0.9 % Sodium Chloride 250 ML IVC PRN (07:26)
[2019-08-01] MEDS: Insulin LISPRO 300 UNITS/3 ML VIAL SQ SCH ×3 (08:21→16:02)
[2019-08-01] MEDS: Insulin DETEMIR 100 UNIT/ML X5UNITS SQ SCH ×2 (08:27→20:47)
[2019-08-01] MEDS: Fluconazole 100 MG TABLET PO SCH (08:27)
[2019-08-01] MEDS: *HR* HYDROcodone/Acet 5/325 mg TABLET PO PRN ×2 (11:58→20:51)
[2019-08-01] MEDS: amLODIPine 5 MG TABLET PO SCH (11:59)
[2019-08-01] MEDS: hydrALAZINE 25 MG TABLET PO SCH ×3 (11:59→20:47)
[2019-08-01] MEDS: BuPROPion SR (12 HR) 100 MG TABLET PO SCH ×2 (12:01→16:10)
[2019-08-01] MEDS: Psyllium 1 PACKET POWD.PACK PO SCH (12:01)
[2019-08-01] MEDS: valACYclovir 500 MG TABLET PO SCH (16:01)
[2019-08-01] MEDS: Furosemide 40 MG TABLET PO SCH (20:47)
[2019-08-01] MEDS: traZODone 50 MG TABLET PO SCH (23:45)
[2019-08-02 04:46] LABS: Hematocrit 26.5 % (37.5-50.1); Hemoglobin 8.9 g/dL (12.9-16.9); Mean Corpuscular HGB Conc 33.6 g/dL (31.6-35.5); Mean Corpuscular Hemoglobin 32.4 pg (28.0-33.3); Mean Corpuscular Volume 96.4 fL (83.0-100.0); Mean Platelet Volume 11.5 fL (9.4-12.4); Platelet Count 168 K/mcL (140-400); Red Blood Count 2.75 M/mcL (4.19-5.50); Red Cell Distribution Width 15.1 % (11.5-14.5); White Blood Count 10.6 K/mcL (4.3-11.1)
[2019-08-02 05:04] LABS: Calcium 7.1 mg/dL (8.6-10.3); Potassium 3.9 mEq/L (3.5-5.1)
[2019-08-02] MEDS: Insulin LISPRO 300 UNITS/3 ML VIAL SQ SCH ×3 (07:46→16:34)
[2019-08-02] MEDS: Fluconazole 100 MG TABLET PO SCH (07:49)
[2019-08-02] MEDS: BuPROPion SR (12 HR) 100 MG TABLET PO SCH ×2 (07:49→16:34)
[2019-08-02] MEDS: Furosemide 40 MG TABLET PO SCH ×2 (07:49→16:34)
[2019-08-02] MEDS: amLODIPine 5 MG TABLET PO SCH (07:49)
[2019-08-02] MEDS: hydrALAZINE 25 MG TABLET PO SCH ×3 (07:49→21:27)
[2019-08-02] MEDS: Psyllium 1 PACKET POWD.PACK PO SCH (07:50)
[2019-08-02] MEDS: Insulin DETEMIR 100 UNIT/ML X5UNITS SQ SCH ×2 (07:54→21:27)
[2019-08-02] MEDS: valACYclovir 500 MG TABLET PO SCH (16:33)
[2019-08-02] MEDS: traZODone 50 MG TABLET PO SCH (21:26)
[2019-08-03 07:27] LABS: Hematocrit 25.5 % (37.5-50.1); Hemoglobin 8.4 g/dL (12.9-16.9); Mean Corpuscular HGB Conc 32.9 g/dL (31.6-35.5); Mean Corpuscular Hemoglobin 32.3 pg (28.0-33.3); Mean Corpuscular Volume 98.1 fL (83.0-100.0); Mean Platelet Volume 11.2 fL (9.4-12.4); Platelet Count 177 K/mcL (140-400); Red Cell Distribution Width 15.1 % (11.5-14.5); White Blood Count 9.9 K/mcL (4.3-11.1)
[2019-08-03 07:46] LABS: Calcium 7.2 mg/dL (8.6-10.3); Potassium 3.8 mEq/L (3.5-5.1)
[2019-08-03] MEDS: Insulin LISPRO 300 UNITS/3 ML VIAL SQ SCH ×3 (09:47→16:40)
[2019-08-03] MEDS: BuPROPion SR (12 HR) 100 MG TABLET PO SCH ×2 (09:48→16:41)
[2019-08-03] MEDS: Psyllium 1 PACKET POWD.PACK PO SCH (09:49)
[2019-08-03] MEDS: Fluconazole 100 MG TABLET PO SCH (09:49)
[2019-08-03] MEDS: hydrALAZINE 25 MG TABLET PO SCH ×3 (09:49→20:48)
[2019-08-03] MEDS: Insulin DETEMIR 100 UNIT/ML X5UNITS SQ SCH ×2 (09:49→20:48)
[2019-08-03] MEDS ORDERED: *HR* Heparin 10,000 UNIT/10 ML VIAL IV PRN (09:59)
[2019-08-03] MEDS: Furosemide 40 MG TABLET PO SCH ×2 (12:34→16:44)
[2019-08-03] MEDS: amLODIPine 5 MG TABLET PO SCH (12:34)
[2019-08-03] MEDS: valACYclovir 500 MG TABLET PO SCH (16:41)
[2019-08-03] MEDS: traZODone 50 MG TABLET PO SCH (23:15)
[2019-08-04 03:41] LABS: Basophils % 0.2 %; Eosinophils # 0.2 K/mcL (0.0-0.6); Eosinophils % 2.2 %; Hematocrit 23.7 % (37.5-50.1); Hemoglobin 7.8 g/dL (12.9-16.9); Immature Granulocytes % 0.5 % (0-4); Lymphocytes # 1.3 K/mcL (0.6-4.6); Mean Corpuscular HGB Conc 32.9 g/dL (31.6-35.5); Mean Corpuscular Hemoglobin 32.4 pg (28.0-33.3); Mean Corpuscular Volume 98.3 fL (83.0-100.0); Mean Platelet Volume 10.7 fL (9.4-12.4); Monocytes % 11.9 %; Neutrophils # 6.1 K/mcL (1.6-8.9); Platelet Count 164 K/mcL (140-400); Red Blood Count 2.41 M/mcL (4.19-5.50); Segmented Neutrophils % 70.2 %; White Blood Count 8.7 K/mcL (4.3-11.1)
[2019-08-04 03:59] LABS: Calcium 7.3 mg/dL (8.6-10.3); Potassium 3.6 mEq/L (3.5-5.1)
[2019-08-04] MEDS: Insulin LISPRO 300 UNITS/3 ML VIAL SQ SCH ×3 (07:29→16:48)
[2019-08-04] MEDS: hydrALAZINE 25 MG TABLET PO SCH ×2 (07:30→16:47)
[2019-08-04] MEDS: Fluconazole 100 MG TABLET PO SCH (07:30)
[2019-08-04] MEDS: Furosemide 40 MG TABLET PO SCH ×2 (07:30→16:47)
[2019-08-04] MEDS: amLODIPine 5 MG TABLET PO SCH (07:30)
[2019-08-04] MEDS: BuPROPion SR (12 HR) 100 MG TABLET PO SCH ×2 (07:32→16:48)
[2019-08-04] MEDS: Insulin DETEMIR 100 UNIT/ML X5UNITS SQ SCH (07:33)
[2019-08-04] MEDS: Psyllium 1 PACKET POWD.PACK PO SCH (07:33)
[2019-08-04 16:47] VITALS: BP 140/63
[2019-08-04] MEDS: valACYclovir 500 MG TABLET PO SCH (16:48)
[2019-08-04 17:19] LABS: Basophils % 0.2 %; Eosinophils # 0.2 K/mcL (0.0-0.6); Eosinophils % 1.9 %; Hematocrit 27.8 % (37.5-50.1); Hemoglobin 9.2 g/dL (12.9-16.9); Immature Granulocytes % 0.8 % (0-4); Lymphocytes # 1.3 K/mcL (0.6-4.6); Lymphocytes % 13.6 %; Mean Corpuscular HGB Conc 33.1 g/dL (31.6-35.5); Mean Corpuscular Hemoglobin 32.4 pg (28.0-33.3); Mean Corpuscular Volume 97.9 fL (83.0-100.0); Mean Platelet Volume 10.8 fL (9.4-12.4); Monocytes % 10.4 %; Neutrophils # 7.1 K/mcL (1.6-8.9); Platelet Count 206 K/mcL (140-400); Red Blood Count 2.84 M/mcL (4.19-5.50); Red Cell Distribution Width 15.1 % (11.5-14.5); Segmented Neutrophils % 73.1 %; White Blood Count 9.8 K/mcL (4.3-11.1)
[2019-08-04] MEDS ORDERED: FLU Vac QV 19-20 (6Month+)/PF 0.5 ML SYRINGE IM ONE (18:43)
== END 2019-08-04 19:43 | disposition home or self-care (01) | DRG 673 ==
LOC: 2ANU 13:23 → EMEROOARM 13:23 → SUATTDRO 16:15 → 2ANU 17:02 → SUATTDRO 07-18 13:36 → ICNU 07-25 07:37 → 2ANU 07-27 14:08
PROVIDERS: ADMIT Internal Medicine; ATTEND Internal Medicine
PROC: IRPERMA (2019-07-29 12:00)

== ENCOUNTER 2019-12-01 17:41 | Inpatient (IN) ==
[2019-12-01 19:34] LABS: Albumin 2.3 g/dL (3.5-5.7); Albumin/Globulin Ratio 0.7 (1.1-2.2); Bilirubin,Total 0.1 mg/dL (0.3-1.0); Calcium 7.9 mg/dL (8.6-10.3); Globulin 3.1 g/dL (2.4-3.5); Potassium 3.9 mEq/L (3.5-5.1); Total Protein 5.4 g/dL (6.4-8.9); Troponin I 0.03 ng/mL (< 0.04)
[2019-12-01 19:35] LABS: Basophils # 0.1 K/mcL (0.0-0.2); Basophils % 0.7 %; Eosinophils # 0.2 K/mcL (0.0-0.6); Eosinophils % 2.4 %; Hematocrit 38.2 % (37.5-50.1); Hemoglobin 12.8 g/dL (12.9-16.9); Immature Granulocytes % 0.2 % (0-4); Lymphocytes # 1.6 K/mcL (0.6-4.6); Lymphocytes % 18.3 %; Mean Corpuscular HGB Conc 33.5 g/dL (31.6-35.5); Mean Corpuscular Volume 89.5 fL (83.0-100.0); Mean Platelet Volume 10.4 fL (9.4-12.4); Monocytes # 0.6 K/mcL (0.0-1.3); Monocytes % 6.4 %; Neutrophils # 6.2 K/mcL (1.6-8.9); Platelet Count 240 K/mcL (140-400); Red Blood Count 4.27 M/mcL (4.19-5.50); Red Cell Distribution Width 14.2 % (11.5-14.5); White Blood Count 8.6 K/mcL (4.3-11.1)
[2019-12-01] MEDS ORDERED: Furosemide 40 MG/4 ML VIAL IVP ONE (20:22)
[2019-12-01] MEDS ORDERED: Naloxone 0.4 MG/ML INJ IVP PRN (21:59)
[2019-12-01] MEDS ORDERED: *HR* Dextrose 50 % in Water (Syg) 50 ML SYRINGE IVP PRN (22:09)
[2019-12-01] MEDS ORDERED: D5% in Water 1,000 ML IVC PRN (22:09)
[2019-12-01] MEDS ORDERED: Simethicone 80 MG TAB.CHEW PO PRN (22:09)
[2019-12-01] MEDS ORDERED: Dextrose Gel 15 GM/37.5 ML TUBE PO PRN ×2 (22:09)
[2019-12-01] MEDS ORDERED: Ipratropium/Albuterol Neb 3 ML AER PRN (22:09)
[2019-12-01] MEDS: Insulin DETEMIR 100 UNIT/ML X5UNITS SQ SCH (22:58)
[2019-12-02] MEDS: Albumin 25% 25gram/100mL 25 GM/100 ML IV.SOLN IVPB SCH ×2 (00:29→08:41)
[2019-12-02] MEDS ORDERED: *HR* Labetalol 20 MG/4 ML SYRINGE IVP ONE (01:31)
[2019-12-02] MEDS ORDERED: *HR* HYDROcodone/Acet 5/325 mg TABLET PO PRN (01:34)
[2019-12-02] MEDS ORDERED: Furosemide 40 MG/4 ML VIAL IVP ONE (02:00)
[2019-12-02 02:30] LABS: Hematocrit 35.2 % (37.5-50.1); Mean Corpuscular HGB Conc 31.8 g/dL (31.6-35.5); Mean Corpuscular Hemoglobin 30.4 pg (28.0-33.3); Mean Corpuscular Volume 95.4 fL (83.0-100.0); Mean Platelet Volume 11.3 fL (9.4-12.4); Platelet Count 134 K/mcL (140-400); Red Blood Count 3.69 M/mcL (4.19-5.50); Red Cell Distribution Width 14.1 % (11.5-14.5); White Blood Count 7.1 K/mcL (4.3-11.1)
[2019-12-02 02:33] LABS: Hemoglobin 11.2 g/dL (12.9-16.9)
[2019-12-02 02:43] LABS: Alanine Aminotransferase 11 Units/L (7-52); Albumin 2.3 g/dL (3.5-5.7); Albumin/Globulin Ratio 0.9 (1.1-2.2); Alkaline Phosphatase 73 Units/L (34-104); Aspartate Amino Transferase 16 Units/L (13-39); BUN/Creatinine Ratio 17 (6-26); Bilirubin,Total 0.2 mg/dL (0.3-1.0); Blood Urea Nitrogen 70 mg/dL (8-23); Calcium 7.6 mg/dL (8.6-10.3); Carbon Dioxide 17 mEq/L (23-29); Chloride 111 mEq/L (98-107); Globulin 2.7 g/dL (2.4-3.5); Glucose 165 mg/dL (70-105); Osmolality,Calculated 314 (280-300); Sodium 140 mEq/L (136-145); eGFR For African Americans 18 (> 60); eGFR For Non-African Americans 15 (> 60)
[2019-12-02 04:39] LABS: C-Reactive Protein < 5 mg/L (Less than 10)
[2019-12-02] MEDS ORDERED: Ipratropium/Albuterol Neb 3 ML IH PRN (07:18)
[2019-12-02] MEDS ORDERED: carvediloL 6.25 MG TABLET PO SCH (08:00)
[2019-12-02] MEDS: Insulin LISPRO 300 UNITS/3 ML VIAL SQ SCH ×3 (08:31→15:48)
[2019-12-02] MEDS: carvediloL 25 MG TABLET PO SCH ×2 (08:38→17:27)
[2019-12-02] MEDS: Aspirin Enteric Coated 81 MG Tablet PO SCH (08:41)
[2019-12-02] MEDS: amLODIPine 5 MG TABLET PO SCH (08:41)
[2019-12-02] MEDS ORDERED: amLODIPine 5 MG TABLET PO SCH (09:00)
[2019-12-02] MEDS: Furosemide 40 MG/4 ML VIAL IVP SCH ×2 (09:42→17:27)
[2019-12-02] MEDS ORDERED: Ondansetron 4 MG/2 ML VIAL IVP PRN (16:40)
[2019-12-02] MEDS ORDERED: *HR* Promethazine 25 MG/ML VIAL IVP PRN (16:40)
[2019-12-02] MEDS: Insulin DETEMIR 100 UNIT/ML X5UNITS SQ SCH (21:19)
[2019-12-03 00:01] LABS: Creatinine,Urine 117 mg/dL
[2019-12-03 00:12] LABS: Bilirubin,Urine Negative (Negative); Blood,Urine Moderate (Negative); Clarity,Urine Clear (Clear); Color,Urine Yellow (Yellow); Glucose,Urine (UA) 500 mg/dL (Normal); Ketones,Urine Negative (Negative); Leukocyte Esterase,Urine Negative (Negative); Nitrite,Urine Negative (Negative); Protein,Urine >=1000 mg/dL (Neg-Trace); Specific Gravity,Urine > 1.030 (1.010-1.025); Urobilinogen,Urine Normal (Normal)
[2019-12-03 00:16] LABS: Bacteria,Urine None Seen per hpf (None-Few); Squamous Epithelial Cell,Urine Many per lpf (None-Few)
[2019-12-03 00:28] LABS: Hyaline Casts,Urine Few per lpf (None-Few)
[2019-12-03 01:51] LABS: Protein/Creatinine Ratio,Urine 23.99 mg/mg (0.00-0.20)
[2019-12-03 05:08] LABS: Calcium 7.8 mg/dL (8.6-10.3); Magnesium 2.1 mg/dL (1.6-2.6); Phosphorous 5.3 mg/dL (2.7-4.5); Potassium 3.9 mEq/L (3.5-5.1); Uric Acid 6.7 mg/dL (2.3-7.6)
[2019-12-03 05:15] LABS: Basophils % 0.5 %; Eosinophils # 0.4 K/mcL (0.0-0.6); Eosinophils % 4.8 %; Hematocrit 36.1 % (37.5-50.1); Immature Granulocytes % 0.7 % (0-4); Lymphocytes % 26.7 %; Mean Corpuscular HGB Conc 33.2 g/dL (31.6-35.5); Mean Corpuscular Volume 90.3 fL (83.0-100.0); Mean Platelet Volume 11.5 fL (9.4-12.4); Monocytes # 0.8 K/mcL (0.0-1.3); Monocytes % 10.5 %; Neutrophils # 4.2 K/mcL (1.6-8.9); Platelet Count 208 K/mcL (140-400); Red Cell Distribution Width 14.2 % (11.5-14.5); Segmented Neutrophils % 56.8 %; White Blood Count 7.3 K/mcL (4.3-11.1)
[2019-12-03] MEDS: Insulin LISPRO 300 UNITS/3 ML VIAL SQ SCH ×3 (07:29→15:51)
[2019-12-03] MEDS: amLODIPine 5 MG TABLET PO SCH (07:47)
[2019-12-03] MEDS: Furosemide 40 MG/4 ML VIAL IVP SCH ×2 (07:48→17:14)
[2019-12-03] MEDS: BuPROPion SR (12 HR) 100 MG TABLET PO SCH ×2 (07:48→20:28)
[2019-12-03] MEDS: Aspirin Enteric Coated 81 MG Tablet PO SCH (07:48)
[2019-12-03] MEDS: carvediloL 25 MG TABLET PO SCH ×2 (07:48→17:14)
[2019-12-03] MEDS: Albumin 25% 25gram/100mL 25 GM/100 ML IV.SOLN IVC SCH ×2 (12:47→15:48)
[2019-12-03] MEDS: metOLazone 5 MG TABLET PO SCH (12:48)
[2019-12-03] MEDS: Insulin DETEMIR 100 UNIT/ML X5UNITS SQ SCH (20:28)
[2019-12-04 05:01] LABS: Basophils # 0.1 K/mcL (0.0-0.2); Basophils % 0.7 %; Eosinophils # 0.3 K/mcL (0.0-0.6); Eosinophils % 4.3 %; Hemoglobin 10.5 g/dL (12.9-16.9); Immature Granulocytes % 0.4 % (0-4); Lymphocytes # 1.4 K/mcL (0.6-4.6); Lymphocytes % 19.3 %; Mean Corpuscular HGB Conc 32.8 g/dL (31.6-35.5); Mean Corpuscular Hemoglobin 29.5 pg (28.0-33.3); Mean Corpuscular Volume 89.9 fL (83.0-100.0); Monocytes # 0.7 K/mcL (0.0-1.3); Monocytes % 10.2 %; Neutrophils # 4.6 K/mcL (1.6-8.9); Platelet Count 189 K/mcL (140-400); Red Blood Count 3.56 M/mcL (4.19-5.50); Red Cell Distribution Width 14.4 % (11.5-14.5); Segmented Neutrophils % 65.1 %; White Blood Count 7.1 K/mcL (4.3-11.1)
[2019-12-04 05:17] LABS: Calcium 7.6 mg/dL (8.6-10.3); Magnesium 1.9 mg/dL (1.6-2.6); Phosphorous 5.3 mg/dL (2.7-4.5); Potassium 3.6 mEq/L (3.5-5.1)
[2019-12-04] MEDS: Insulin LISPRO 300 UNITS/3 ML VIAL SQ SCH ×3 (07:36→17:39)
[2019-12-04] MEDS: Aspirin Enteric Coated 81 MG Tablet PO SCH (07:53)
[2019-12-04] MEDS: metOLazone 5 MG TABLET PO SCH (07:53)
[2019-12-04] MEDS: BuPROPion SR (12 HR) 100 MG TABLET PO SCH ×2 (07:53→21:09)
[2019-12-04] MEDS: amLODIPine 5 MG TABLET PO SCH (07:53)
[2019-12-04] MEDS: carvediloL 25 MG TABLET PO SCH ×2 (07:54→17:38)
[2019-12-04] MEDS: Furosemide 40 MG/4 ML VIAL IVP SCH ×2 (07:54→17:42)
[2019-12-04] MEDS: Psyllium 1 PACKET POWD.PACK PO SCH ×2 (13:07→21:09)
[2019-12-04] MEDS: Insulin DETEMIR 100 UNIT/ML X5UNITS SQ SCH (21:09)
[2019-12-05 04:45] LABS: Basophils # 0.1 K/mcL (0.0-0.2); Basophils % 0.8 %; Eosinophils # 0.3 K/mcL (0.0-0.6); Eosinophils % 3.6 %; Hematocrit 33.3 % (37.5-50.1); Immature Granulocytes % 0.4 % (0-4); Lymphocytes # 1.6 K/mcL (0.6-4.6); Lymphocytes % 19.8 %; Mean Corpuscular Hemoglobin 29.9 pg (28.0-33.3); Mean Corpuscular Volume 90.5 fL (83.0-100.0); Mean Platelet Volume 10.9 fL (9.4-12.4); Monocytes # 0.9 K/mcL (0.0-1.3); Monocytes % 10.8 %; Neutrophils # 5.1 K/mcL (1.6-8.9); Platelet Count 194 K/mcL (140-400); Red Blood Count 3.68 M/mcL (4.19-5.50); Red Cell Distribution Width 14.4 % (11.5-14.5); Segmented Neutrophils % 64.6 %
[2019-12-05 05:27] LABS: Calcium 7.4 mg/dL (8.6-10.3); Magnesium 1.9 mg/dL (1.6-2.6); Phosphorous 5.2 mg/dL (2.7-4.5); Potassium 3.5 mEq/L (3.5-5.1)
[2019-12-05] MEDS ORDERED: metOLazone 5 MG TABLET PO SCH (07:30)
[2019-12-05] MEDS: BuPROPion SR (12 HR) 100 MG TABLET PO SCH ×2 (08:26→21:03)
[2019-12-05] MEDS: carvediloL 25 MG TABLET PO SCH ×2 (08:27→16:58)
[2019-12-05] MEDS: amLODIPine 5 MG TABLET PO SCH (08:27)
[2019-12-05] MEDS: Psyllium 1 PACKET POWD.PACK PO SCH ×3 (08:28→16:58)
[2019-12-05] MEDS: Furosemide 40 MG/4 ML VIAL IVP SCH ×2 (08:28→16:58)
[2019-12-05] MEDS: Insulin LISPRO 300 UNITS/3 ML VIAL SQ SCH ×3 (08:33→18:16)
[2019-12-05] MEDS: Aspirin Enteric Coated 81 MG Tablet PO SCH (08:45)
[2019-12-05 11:07] LABS: Hepatitis B Surface Antigen Nonreactive (Nonreactive)
[2019-12-05 11:28] LABS: Prothrombin Time 11.5 Seconds (9.4-12.1)
[2019-12-05 11:36] LABS: Total Volume 24 Hour,Urine 1.77 Liters (0.80-1.80)
[2019-12-05 12:24] LABS: Creatinine 24 Hour,Urine 1505 mg/day (800-2000); Creatinine,Urine 85 mg/dL; Microalbumin,Urine > 1350 mg/L; Total Protein 24 Hour,Urine 41524 mg/day (50-80)
[2019-12-05] MEDS ORDERED: Heparin 1,000 UNITS/500 mL 500 ML ONE (13:45)
[2019-12-05] MEDS ORDERED: *HR* Midazolam HCl 2 MG/2 ML VIAL IVP ONE (14:20)
[2019-12-05] MEDS ORDERED: CeFAZolin Syr 2,000MG/20 ML 2,000 MG/20 ML SYRINGE IVPB ONE (14:20)
[2019-12-05] MEDS ORDERED: *HR* FentaNYL (PF) 100 MCG/2 ML VIAL IVP ONE (14:20)
[2019-12-05] MEDS ORDERED: 0.9 % Sodium Chloride 500 ML ONE (14:30)
[2019-12-05] MEDS ORDERED: CeFAZolin 2,000 MG/50 ML BAG IVPB ONE (14:45)
[2019-12-05] MEDS ORDERED: *HR* Heparin 5,000 UNIT/ML VIAL ONE (14:50)
[2019-12-05] MEDS ORDERED: 0.9 % Sodium Chloride 1,000 ML ONE (15:20)
[2019-12-05] MEDS ORDERED: 0.9 % Sodium Chloride 250 ML IVC PRN (15:28)
[2019-12-05] MEDS ORDERED: *HR* Heparin 10,000 UNIT/10 ML VIAL IV PRN ×2 (15:28)
[2019-12-05] MEDS ORDERED: 0.9 % Sodium Chloride 1,000 ML PRIME SCH (15:30)
[2019-12-05] MEDS: Insulin DETEMIR 100 UNIT/ML X5UNITS SQ SCH (21:03)
[2019-12-06 04:19] LABS: Calcium 7.7 mg/dL (8.6-10.3); Magnesium 1.8 mg/dL (1.6-2.6); Phosphorous 4.8 mg/dL (2.7-4.5); Potassium 3.2 mEq/L (3.5-5.1)
[2019-12-06 04:24] LABS: Basophils # 0.1 K/mcL (0.0-0.2); Basophils % 0.7 %; Eosinophils # 0.3 K/mcL (0.0-0.6); Eosinophils % 4.1 %; Hematocrit 33.7 % (37.5-50.1); Immature Granulocytes % 0.1 % (0-4); Lymphocytes # 1.6 K/mcL (0.6-4.6); Lymphocytes % 19.4 %; Mean Corpuscular HGB Conc 32.6 g/dL (31.6-35.5); Mean Corpuscular Volume 91.8 fL (83.0-100.0); Mean Platelet Volume 11.1 fL (9.4-12.4); Monocytes # 0.8 K/mcL (0.0-1.3); Monocytes % 9.7 %; Neutrophils # 5.3 K/mcL (1.6-8.9); Platelet Count 199 K/mcL (140-400); Red Blood Count 3.67 M/mcL (4.19-5.50); Red Cell Distribution Width 14.6 % (11.5-14.5)
[2019-12-06] MEDS: Insulin LISPRO 300 UNITS/3 ML VIAL SQ SCH ×3 (07:09→16:08)
[2019-12-06] MEDS: Psyllium 1 PACKET POWD.PACK PO SCH ×3 (07:10→16:32)
[2019-12-06] MEDS: Aspirin Enteric Coated 81 MG Tablet PO SCH (07:17)
[2019-12-06] MEDS: carvediloL 25 MG TABLET PO SCH ×2 (07:17→16:32)
[2019-12-06] MEDS: Furosemide 40 MG/4 ML VIAL IVP SCH ×2 (07:17→16:32)
[2019-12-06] MEDS: amLODIPine 5 MG TABLET PO SCH (07:17)
[2019-12-06] MEDS: BuPROPion SR (12 HR) 100 MG TABLET PO SCH ×2 (07:18→19:57)
[2019-12-06] MEDS ORDERED: Potassium Chloride Elixir 20 MEQ/15 ML UDC PO ONE (07:21)
[2019-12-06] MEDS ORDERED: 0.9 % Sodium Chloride 250 ML IVC PRN (07:51)
[2019-12-06] MEDS ORDERED: *HR* Heparin 10,000 UNIT/10 ML VIAL IV PRN ×2 (07:51)
[2019-12-06] MEDS ORDERED: 0.9 % Sodium Chloride 1,000 ML PRIME SCH (08:00)
[2019-12-06 08:57] LABS: Creatinine Clearance 24 mL/min (61-166)
[2019-12-06] MEDS: Insulin DETEMIR 100 UNIT/ML X5UNITS SQ SCH (19:51)
[2019-12-07 04:32] LABS: Basophils # 0.1 K/mcL (0.0-0.2); Basophils % 0.8 %; Eosinophils # 0.3 K/mcL (0.0-0.6); Eosinophils % 4.2 %; Hematocrit 30.6 % (37.5-50.1); Hemoglobin 10.2 g/dL (12.9-16.9); Immature Granulocytes % 0.3 % (0-4); Lymphocytes # 1.7 K/mcL (0.6-4.6); Lymphocytes % 24.2 %; Mean Corpuscular HGB Conc 33.3 g/dL (31.6-35.5); Mean Corpuscular Hemoglobin 29.8 pg (28.0-33.3); Mean Corpuscular Volume 89.5 fL (83.0-100.0); Mean Platelet Volume 11.2 fL (9.4-12.4); Monocytes # 0.9 K/mcL (0.0-1.3); Monocytes % 11.8 %; Neutrophils # 4.2 K/mcL (1.6-8.9); Platelet Count 180 K/mcL (140-400); Red Blood Count 3.42 M/mcL (4.19-5.50); Red Cell Distribution Width 14.6 % (11.5-14.5); Segmented Neutrophils % 58.7 %; White Blood Count 7.2 K/mcL (4.3-11.1)
[2019-12-07 04:48] LABS: Calcium 7.2 mg/dL (8.6-10.3); Magnesium 1.7 mg/dL (1.6-2.6); Phosphorous 3.9 mg/dL (2.7-4.5); Potassium 3.4 mEq/L (3.5-5.1)
[2019-12-07] MEDS ORDERED: Potassium Chloride Elixir 20 MEQ/15 ML UDC PO ONE (07:16)
[2019-12-07] MEDS: Insulin LISPRO 300 UNITS/3 ML VIAL SQ SCH ×3 (07:33→18:02)
[2019-12-07] MEDS: Psyllium 1 PACKET POWD.PACK PO SCH ×3 (07:33→18:02)
[2019-12-07] MEDS: Furosemide 40 MG/4 ML VIAL IVP SCH ×2 (07:43→18:21)
[2019-12-07] MEDS: carvediloL 25 MG TABLET PO SCH ×2 (07:44→18:20)
[2019-12-07] MEDS: Aspirin Enteric Coated 81 MG Tablet PO SCH (07:44)
[2019-12-07] MEDS: BuPROPion SR (12 HR) 100 MG TABLET PO SCH ×2 (07:44→20:24)
[2019-12-07] MEDS: amLODIPine 5 MG TABLET PO SCH (07:44)
[2019-12-07] MEDS ORDERED: *HR* Heparin 10,000 UNIT/10 ML VIAL IV PRN ×2 (08:54)
[2019-12-07] MEDS ORDERED: 0.9 % Sodium Chloride 250 ML IVC PRN (08:54)
[2019-12-07] MEDS ORDERED: 0.9 % Sodium Chloride 1,000 ML PRIME SCH (09:00)
[2019-12-07] MEDS: Insulin DETEMIR 100 UNIT/ML X5UNITS SQ SCH (20:24)
[2019-12-08 06:21] LABS: Basophils % 0.6 %; Eosinophils # 0.3 K/mcL (0.0-0.6); Eosinophils % 3.9 %; Hematocrit 34.4 % (37.5-50.1); Hemoglobin 11.4 g/dL (12.9-16.9); Immature Granulocytes % 0.4 % (0-4); Lymphocytes # 1.7 K/mcL (0.6-4.6); Lymphocytes % 24.5 %; Mean Corpuscular HGB Conc 33.1 g/dL (31.6-35.5); Mean Corpuscular Hemoglobin 29.9 pg (28.0-33.3); Mean Corpuscular Volume 90.3 fL (83.0-100.0); Mean Platelet Volume 11.7 fL (9.4-12.4); Monocytes # 0.8 K/mcL (0.0-1.3); Monocytes % 11.5 %; Neutrophils # 4.1 K/mcL (1.6-8.9); Platelet Count 198 K/mcL (140-400); Red Blood Count 3.81 M/mcL (4.19-5.50); Red Cell Distribution Width 14.7 % (11.5-14.5); Segmented Neutrophils % 59.1 %; White Blood Count 6.9 K/mcL (4.3-11.1)
[2019-12-08 06:44] LABS: Calcium 7.4 mg/dL (8.6-10.3); Magnesium 1.7 mg/dL (1.6-2.6); Phosphorous 3.5 mg/dL (2.7-4.5); Potassium 3.9 mEq/L (3.5-5.1)
[2019-12-08] MEDS: Insulin LISPRO 300 UNITS/3 ML VIAL SQ SCH ×3 (08:28→16:21)
[2019-12-08] MEDS: amLODIPine 5 MG TABLET PO SCH (08:29)
[2019-12-08] MEDS: BuPROPion SR (12 HR) 100 MG TABLET PO SCH ×2 (08:29→19:50)
[2019-12-08] MEDS: Furosemide 40 MG/4 ML VIAL IVP SCH ×2 (08:29→16:22)
[2019-12-08] MEDS: carvediloL 25 MG TABLET PO SCH ×2 (08:29→16:22)
[2019-12-08] MEDS: Psyllium 1 PACKET POWD.PACK PO SCH ×3 (08:29→16:23)
[2019-12-08] MEDS: Aspirin Enteric Coated 81 MG Tablet PO SCH (08:29)
[2019-12-08] MEDS: *HR* HYDROcodone/Acet 5/325 mg TABLET PO PRN (13:28)
[2019-12-08] MEDS: tiZANidine 4 MG TABLET PO PRN (17:50)
[2019-12-08] MEDS: Insulin DETEMIR 100 UNIT/ML X5UNITS SQ SCH (19:51)
[2019-12-09 05:27] LABS: Hematocrit 32.2 % (37.5-50.1); Hemoglobin 10.8 g/dL (12.9-16.9); Mean Corpuscular HGB Conc 33.5 g/dL (31.6-35.5); Mean Corpuscular Hemoglobin 30.1 pg (28.0-33.3); Mean Corpuscular Volume 89.7 fL (83.0-100.0); Mean Platelet Volume 11.4 fL (9.4-12.4); Platelet Count 187 K/mcL (140-400); Red Blood Count 3.59 M/mcL (4.19-5.50); Red Cell Distribution Width 14.6 % (11.5-14.5); White Blood Count 7.8 K/mcL (4.3-11.1)
[2019-12-09 05:46] LABS: Calcium 7.3 mg/dL (8.6-10.3); Potassium 3.7 mEq/L (3.5-5.1)
[2019-12-09] MEDS: tiZANidine 4 MG TABLET PO PRN ×2 (06:08→12:23)
[2019-12-09] MEDS: Insulin LISPRO 300 UNITS/3 ML VIAL SQ SCH ×2 (07:44→11:56)
[2019-12-09] MEDS: carvediloL 25 MG TABLET PO SCH (07:44)
[2019-12-09] MEDS: Aspirin Enteric Coated 81 MG Tablet PO SCH (07:57)
[2019-12-09] MEDS: BuPROPion SR (12 HR) 100 MG TABLET PO SCH (07:57)
[2019-12-09] MEDS: Furosemide 40 MG/4 ML VIAL IVP SCH (07:59)
[2019-12-09] MEDS ORDERED: 0.9 % Sodium Chloride 250 ML IVC PRN (08:23)
[2019-12-09] MEDS ORDERED: *HR* Heparin 10,000 UNIT/10 ML VIAL IV PRN ×2 (08:23)
[2019-12-09] MEDS ORDERED: Psyllium 1 PACKET POWD.PACK PO SCH (09:00)
[2019-12-09] MEDS: amLODIPine 5 MG TABLET PO SCH (09:32)
[2019-12-09] MEDS: *HR* HYDROcodone/Acet 5/325 mg TABLET PO PRN (10:47)
[2019-12-09 14:31] VITALS: BP 189/86
== END 2019-12-09 16:27 | disposition home or self-care (01) | DRG 682 ==
LOC: EMEROOARM 17:41 → 2ANU 17:41 → SUATTDRO 20:52 → 2ANU 21:26
PROVIDERS: ADMIT Internal Medicine; ATTEND Internal Medicine
PROC: IRPERMA (2019-12-05 12:00)

== ENCOUNTER 2021-02-06 17:21 | Inpatient (IN) ==
[2021-02-06] MEDS ORDERED: 0.9 % Sodium Chloride 1,000 ML ONE (18:30)
[2021-02-06] MEDS ORDERED: 0.9 % Sodium Chloride 1,000 ML IVC ONE (18:52)
[2021-02-06] MEDS ORDERED: Isovue-370 500 ML BOTTLE IVP ONE (19:08)
[2021-02-06] MEDS ORDERED: Pantoprazole 40 MG VIAL IVP ONE ×2 (19:09→21:46)
[2021-02-06 19:16] LABS: Basophils % 0.4 %; Eosinophils # 0.3 K/mcL (0.0-0.6); Hematocrit 19.4 % (37.5-50.1); Hemoglobin 6.2 g/dL (12.9-16.9); Immature Granulocytes % 1.4 % (0-4); Lymphocytes # 1.1 K/mcL (0.6-4.6); Lymphocytes % 10.6 %; Mean Corpuscular Hemoglobin 32.6 pg (28.0-33.3); Mean Corpuscular Volume 102.1 fL (83.0-100.0); Monocytes % 10.2 %; Neutrophils # 7.5 K/mcL (1.6-8.9); Platelet Count 223 K/mcL (140-400); Red Cell Distribution Width 14.6 % (11.5-14.5); Segmented Neutrophils % 74.4 %
[2021-02-06 19:25] LABS: INR 1.2; Prothrombin Time 13.8 Seconds (9.4-12.1)
[2021-02-06 19:28] LABS: Activated Partial Thrombo Time 27.1 Seconds (26.0-36.0)
[2021-02-06 19:34] LABS: Alanine Aminotransferase 18 Units/L (7-52); Albumin/Globulin Ratio 0.8 (1.1-2.2); Alkaline Phosphatase 100 Units/L (34-104); Aspartate Amino Transferase 17 Units/L (13-39); BUN/Creatinine Ratio 8 (6-26); Bilirubin,Total 0.2 mg/dL (0.3-1.0); Blood Urea Nitrogen 88 mg/dL (8-23); Calcium 7.8 mg/dL (8.6-10.3); Carbon Dioxide 26 mEq/L (23-29); Chloride 92 mEq/L (98-107); Globulin 3.8 g/dL (2.4-3.5); Glucose 174 mg/dL (70-105); Osmolality,Calculated 307 (280-300); Potassium 3.9 mEq/L (3.5-5.1); Sodium 133 mEq/L (136-145); Total Protein 6.8 g/dL (6.4-8.9); eGFR For African Americans 5 (> 60); eGFR For Non-African Americans 4 (> 60)
[2021-02-06 19:41] LABS: Troponin I 0.49 ng/mL (< 0.04)
[2021-02-06] MEDS ORDERED: Morphine Sulfate 2 MG/ML SYRINGE IVP ONE (20:34)
[2021-02-06 21:28] LABS: Bilirubin,Urine Negative (Negative); Blood,Urine Large (Negative); Clarity,Urine Ex.Turbid (Clear); Color,Urine Orange (Yellow); Glucose,Urine (UA) 300 mg/dL (Normal); Ketones,Urine Negative (Negative); Leukocyte Esterase,Urine Large (Negative); Nitrite,Urine Negative (Negative); PH,Urine 6.5 pH Units (5.0-8.0); Protein,Urine >=600 mg/dL (Neg-Trace); RBC,Urine TNTC per hpf (0-3); Specific Gravity,Urine > 1.030 (1.010-1.025); Urobilinogen,Urine Normal (Normal); WBC,Urine TNTC per hpf (0-3)
[2021-02-06 21:38] LABS: Adenovirus Not Detected (Not Detect); Bordetella Pertussis Not Detected (Not Detect); Chlamydophila pneumoniae Not Detected (Not Detect); Coronavirus 229E Not Detected (Not Detect); Coronavirus HKU1 Not Detected (Not Detect); Coronavirus NL63 Not Detected (Not Detect); Coronavirus OC43 Not Detected (Not Detect); Human Metapneumovirus Not Detected (Not Detect); Human Rhinovirus/Enterovirus Not Detected (Not Detect); Influenza A Subtype 2009 H1 Not Detected (Not Detect); Influenza B Not Detected (Not Detect); Mycoplasma pneumoniae Not Detected (Not Detect); Parainfluenza Virus 1 Not Detected (Not Detect); Parainfluenza Virus 2 Not Detected (Not Detect); Parainfluenza Virus 3 Not Detected (Not Detect); Parainfluenza Virus 4 Not Detected (Not Detect); Respiratory Syncytial Virus Not Detected (Not Detect); SARS-CoV-2 Not Detected (Not Detect)
[2021-02-06] MEDS ORDERED: Ondansetron 4 MG/2 ML VIAL IVP PRN (21:44)
[2021-02-06] MEDS ORDERED: Naloxone 0.4 MG/ML INJ IVP PRN (21:44)
[2021-02-06] MEDS ORDERED: *HR* Dextrose 50 % in Water (Vial) 50 ML VIAL IVP PRN (21:47)
[2021-02-06] MEDS ORDERED: D5% in Water 1,000 ML IVC PRN (21:47)
[2021-02-06] MEDS ORDERED: Dextrose Gel 15 GM/37.5 ML TUBE PO PRN ×2 (21:47)
[2021-02-06 22:14] LABS: % Iron Saturation 21 % (20-55); Iron 40 mcg/dL (65-175); Transferrin 133 mg/dL (203-362)
[2021-02-06 22:37] LABS: Folate 19.5 ng/mL (3.0-16.0)
[2021-02-06 22:55] LABS: Ferritin > 1500 ng/mL (20-250)
[2021-02-07] MEDS ORDERED: 0.9 % Sodium Chloride 250 ML ONE (01:08)
[2021-02-07] MEDS ORDERED: Perflutren Lipid Microsphere 1.3 ML in 0.9 % Sodium Chloride 8.7 ML IVP PRN (01:33)
[2021-02-07] MEDS: Insulin LISPRO 300 UNITS/3 ML VIAL SUBQ SCH ×4 (02:05→16:41)
[2021-02-07 06:38] LABS: Hematocrit 23.1 % (37.5-50.1); Hemoglobin 7.4 g/dL (12.9-16.9); Mean Corpuscular Hemoglobin 31.8 pg (28.0-33.3); Mean Corpuscular Volume 99.1 fL (83.0-100.0); Mean Platelet Volume 10.6 fL (9.4-12.4); Platelet Count 234 K/mcL (140-400); Red Blood Count 2.33 M/mcL (4.19-5.50); Red Cell Distribution Width 15.9 % (11.5-14.5); White Blood Count 9.3 K/mcL (4.3-11.1)
[2021-02-07 07:04] LABS: Calcium 7.8 mg/dL (8.6-10.3); Chol/HDL Ratio 3.6 (0-4.9); Potassium 3.9 mEq/L (3.5-5.1)
[2021-02-07] MEDS: Pantoprazole 40 MG VIAL IVP SCH ×2 (08:38→16:31)
[2021-02-07] MEDS: Ipratropium/Albuterol Neb 3 ML IH SCH ×4 (09:59→22:09)
[2021-02-07] MEDS ORDERED: Furosemide 20 MG/2 ML VIAL IVP ONE (11:39)
[2021-02-07 13:13] LABS: Hepatitis B Surface Antibody < 3.10 mIU/mL
[2021-02-07 13:22] LABS: Hepatitis B Surface Antigen Nonreactive (Nonreactive)
[2021-02-07] MEDS ORDERED: Perit. Dialysis with Dex 2.5 % 12,000 ML PERITONEAL ONE (19:00)
[2021-02-07] MEDS ORDERED: *HR* LORazepam 0.5 MG TABLET PO ONE (21:36)
[2021-02-08] MEDS: Insulin LISPRO 300 UNITS/3 ML VIAL SUBQ SCH ×6 (00:17→19:43)
[2021-02-08] MEDS: Ipratropium/Albuterol Neb 3 ML IH SCH ×4 (03:26→22:18)
[2021-02-08] MEDS: Pantoprazole 40 MG VIAL IVP SCH ×2 (05:32→16:54)
[2021-02-08 07:10] LABS: Basophils # 0.1 K/mcL (0.0-0.2); Basophils % 0.6 %; Eosinophils # 0.2 K/mcL (0.0-0.6); Eosinophils % 2.8 %; Hematocrit 22.4 % (37.5-50.1); Hemoglobin 7.3 g/dL (12.9-16.9); Immature Granulocytes % 2.2 % (0-4); Lymphocytes # 1.1 K/mcL (0.6-4.6); Lymphocytes % 12.9 %; Mean Corpuscular HGB Conc 32.6 g/dL (31.6-35.5); Mean Corpuscular Hemoglobin 32.2 pg (28.0-33.3); Mean Corpuscular Volume 98.7 fL (83.0-100.0); Mean Platelet Volume 10.9 fL (9.4-12.4); Monocytes # 0.8 K/mcL (0.0-1.3); Monocytes % 10.4 %; Neutrophils # 5.8 K/mcL (1.6-8.9); Platelet Count 222 K/mcL (140-400); Red Blood Count 2.27 M/mcL (4.19-5.50); Red Cell Distribution Width 15.9 % (11.5-14.5); Segmented Neutrophils % 71.1 %; White Blood Count 8.1 K/mcL (4.3-11.1)
[2021-02-08 07:25] LABS: Calcium 7.5 mg/dL (8.6-10.3); Potassium 3.6 mEq/L (3.5-5.1); Troponin I 0.48 ng/mL (< 0.04)
[2021-02-08] MEDS ORDERED: 0.9 % Sodium Chloride 500 ML IV ONE (12:15)
[2021-02-08] MEDS: Ampicillin 2 GM in 0.9 % Sodium Chloride Mini Bag 100 ML IVPB SCH ×2 (13:26→23:45)
[2021-02-08 14:13] LABS: Hematocrit 22.7 % (37.5-50.1); Hemoglobin 7.4 g/dL (12.9-16.9)
[2021-02-08] MEDS ORDERED: Lidocaine -MPF 2% 2 ML VIAL ONE (14:26)
[2021-02-08] MEDS ORDERED: MetroNIDAZOLE 500 MG/100 ML 500 MG/100 ML BAG IVPB ONE (14:54)
[2021-02-08] MEDS ORDERED: Gentamicin 430 MG in 0.9 % Sodium Chloride 100 ML IVPB STA (15:07)
[2021-02-08] MEDS ORDERED: Perit. Dialysis with Dex 2.5 % 12,000 ML PERITONEAL ONE (19:00)
[2021-02-09] MEDS: Ipratropium/Albuterol Neb 3 ML IH SCH ×4 (03:47→22:05)
[2021-02-09 04:57] LABS: Calcium 7.4 mg/dL (8.6-10.3); Potassium 3.8 mEq/L (3.5-5.1)
[2021-02-09 05:37] LABS: Basophils # 0.1 K/mcL (0.0-0.2); Basophils % 0.6 %; Eosinophils # 0.3 K/mcL (0.0-0.6); Eosinophils % 3.1 %; Hemoglobin 7.1 g/dL (12.9-16.9); Immature Granulocytes % 1.2 % (0-4); Lymphocytes # 0.8 K/mcL (0.6-4.6); Lymphocytes % 8.9 %; Mean Corpuscular HGB Conc 32.3 g/dL (31.6-35.5); Mean Corpuscular Hemoglobin 32.3 pg (28.0-33.3); Mean Platelet Volume 10.9 fL (9.4-12.4); Monocytes # 0.8 K/mcL (0.0-1.3); Monocytes % 9.2 %; Neutrophils # 6.5 K/mcL (1.6-8.9); Platelet Count 215 K/mcL (140-400); Red Cell Distribution Width 15.8 % (11.5-14.5); White Blood Count 8.4 K/mcL (4.3-11.1)
[2021-02-09] MEDS: Pantoprazole 40 MG VIAL IVP SCH (06:11)
[2021-02-09] MEDS: Amoxicillin 500 MG CAPSULE PO SCH ×2 (08:32→20:02)
[2021-02-09] MEDS: Insulin LISPRO 300 UNITS/3 ML VIAL SUBQ SCH ×4 (08:32→22:47)
[2021-02-09] MEDS ORDERED: Darbepoetin 100 MCG/0.5 ML SYRINGE SQ ONE (09:15)
[2021-02-09 17:45] LABS: Hematocrit 23.2 % (37.5-50.1); Hemoglobin 7.5 g/dL (12.9-16.9)
[2021-02-09] MEDS ORDERED: Acetaminophen 325 MG TABLET PO ONE (18:40)
[2021-02-09] MEDS ORDERED: Perit. Dialysis with Dex 2.5 % 12,000 ML PERITONEAL ONE (19:00)
[2021-02-09] MEDS: Famotidine 20 MG TABLET PO SCH (19:27)
[2021-02-10 02:18] LABS: Calcium 6.9 mg/dL (8.6-10.3); Potassium 3.4 mEq/L (3.5-5.1)
[2021-02-10] MEDS: Ipratropium/Albuterol Neb 3 ML IH SCH ×4 (03:57→22:13)
[2021-02-10] MEDS: Insulin LISPRO 300 UNITS/3 ML VIAL SUBQ SCH ×4 (08:02→19:57)
[2021-02-10] MEDS: Amoxicillin 500 MG CAPSULE PO SCH ×2 (08:02→20:07)
[2021-02-10] MEDS: Famotidine 20 MG TABLET PO SCH ×3 (08:02→20:07)
[2021-02-10 12:03] LABS: Basophils # 0.1 K/mcL (0.0-0.2); Basophils % 0.5 %; Eosinophils # 0.3 K/mcL (0.0-0.6); Eosinophils % 2.8 %; Hematocrit 20.9 % (37.5-50.1); Hemoglobin 6.8 g/dL (12.9-16.9); Lymphocytes # 0.9 K/mcL (0.6-4.6); Lymphocytes % 9.8 %; Mean Corpuscular HGB Conc 32.5 g/dL (31.6-35.5); Mean Corpuscular Hemoglobin 31.9 pg (28.0-33.3); Mean Corpuscular Volume 98.1 fL (83.0-100.0); Mean Platelet Volume 10.8 fL (9.4-12.4); Monocytes # 0.6 K/mcL (0.0-1.3); Monocytes % 6.7 %; Neutrophils # 7.2 K/mcL (1.6-8.9); Platelet Count 199 K/mcL (140-400); Red Blood Count 2.13 M/mcL (4.19-5.50); Red Cell Distribution Width 15.8 % (11.5-14.5); Segmented Neutrophils % 77.2 %; White Blood Count 9.4 K/mcL (4.3-11.1)
[2021-02-10] MEDS ORDERED: 0.9 % Sodium Chloride 250 ML ONE (15:41)
[2021-02-10] MEDS ORDERED: Acetaminophen 325 MG TABLET PO ONE (16:04)
[2021-02-10] MEDS ORDERED: Perit. Dialysis with Dex 2.5 % 12,000 ML PERITONEAL ONE (19:31)
[2021-02-10 20:59] LABS: Hematocrit 22.9 % (37.5-50.1); Hemoglobin 7.5 g/dL (12.9-16.9)
[2021-02-11] MEDS ORDERED: GuaiFENesin/Dextromethorphan TABLET PO PRN (01:06)
[2021-02-11] MEDS: Ipratropium/Albuterol Neb 3 ML IH SCH (03:20)
[2021-02-11 03:34] LABS: Basophils # 0.1 K/mcL (0.0-0.2); Basophils % 0.7 %; Eosinophils # 0.3 K/mcL (0.0-0.6); Eosinophils % 3.7 %; Hematocrit 24.6 % (37.5-50.1); Hemoglobin 7.9 g/dL (12.9-16.9); Immature Granulocytes % 4.8 % (0-4); Lymphocytes # 1.1 K/mcL (0.6-4.6); Lymphocytes % 11.9 %; Mean Corpuscular HGB Conc 32.1 g/dL (31.6-35.5); Mean Corpuscular Hemoglobin 31.6 pg (28.0-33.3); Mean Corpuscular Volume 98.4 fL (83.0-100.0); Mean Platelet Volume 10.9 fL (9.4-12.4); Monocytes # 0.7 K/mcL (0.0-1.3); Monocytes % 7.5 %; Neutrophils # 6.4 K/mcL (1.6-8.9); Platelet Count 228 K/mcL (140-400); Red Cell Distribution Width 16.3 % (11.5-14.5); Segmented Neutrophils % 71.4 %; White Blood Count 8.9 K/mcL (4.3-11.1)
[2021-02-11 03:56] LABS: Calcium 7.1 mg/dL (8.6-10.3); Potassium 3.4 mEq/L (3.5-5.1)
[2021-02-11 07:10] VITALS: BP 109/45
[2021-02-11] MEDS: Famotidine 20 MG TABLET PO SCH (07:33)
[2021-02-11] MEDS: Amoxicillin 500 MG CAPSULE PO SCH (07:33)
[2021-02-11] MEDS: Insulin LISPRO 300 UNITS/3 ML VIAL SUBQ SCH (07:34)
[2021-02-11] MEDS ORDERED: Famotidine 20 MG TABLET PO SCH (09:00)
[2021-02-12 07:47] LABS: Alpha 2 Globulin (PEP) 1.53 g/dL (0.48-1.05); Beta Globulin (PEP) 0.73 g/dL (0.48-1.10)
[2021-02-12 12:40] LABS: IFE Reflexed IFE Done; Immunoglobulin A 315 mg/dL (68-408); Immunoglobulin G 722 mg/dL (768-1632); Immunoglobulin M 56 mg/dL (35-263)
== END 2021-02-11 11:12 | disposition home or self-care (01) | DRG 811 ==
LOC: EMEROOARM 17:21 → CDU 17:21 → SUATTDRO 22:37 → CDU 23:05 → 2ANU 02-08 15:00
PROVIDERS: ADMIT Student in an Organized Health Care Education/Training Program; ATTEND Student in an Organized Health Care Education/Training Program
PROC: ENDOEBX (2021-02-08 09:50)

== ENCOUNTER 2021-05-20 14:46 | Inpatient (IN) ==
[2021-05-20] MEDS ORDERED: Mag Hydrox/Al Hydrox/Simeth 30 ML UDC PO PRN (17:47)
[2021-05-20] MEDS ORDERED: Naloxone 0.4 MG/ML INJ IVP PRN (17:47)
[2021-05-20] MEDS ORDERED: Ondansetron ODT 4 MG TAB.RAPDIS SL PRN (17:47)
[2021-05-20] MEDS ORDERED: Dextrose Gel 15 GM/37.5 ML TUBE PO PRN ×2 (18:23)
[2021-05-20] MEDS ORDERED: *HR* Dextrose 50 % in Water (Vial) 50 ML VIAL IVP PRN (18:23)
[2021-05-20] MEDS ORDERED: D5% in Water 1,000 ML IVC PRN (18:23)
[2021-05-20] MEDS ORDERED: Perit. Dialysis with Dex 2.5 % 12,000 ML PERITONEAL ONE (19:00)
[2021-05-20] MEDS: Insulin DETEMIR 100 UNIT/ML X5UNITS SUBQ SCH (20:00)
[2021-05-20] MEDS: Melatonin 3 MG TABLET PO PRN (20:00)
[2021-05-20] MEDS: Insulin LISPRO 300 UNITS/3 ML VIAL SUBQ SCH (20:01)
[2021-05-20 20:59] LABS: Immature Reticulocyte % 32.5 % (11.0-38.0); Retculocyte # 0.05 M/mcL (0.05-0.10); Reticulocyte % 2.2 % (1.6-2.8)
[2021-05-20 21:05] LABS: Hemoglobin 8.2 g/dL (12.9-16.9); White Blood Count 8.7 K/mcL (4.3-11.1)
[2021-05-20 21:07] LABS: Basophils % 0.5 %; Eosinophils # 0.4 K/mcL (0.0-0.6); Eosinophils % 4.2 %; Hematocrit 25.5 % (37.5-50.1); Immature Granulocytes % 0.9 % (0-4); Immature Platelets 2.6 % (1.1-6.1); Lymphocytes # 1.4 K/mcL (0.6-4.6); Lymphocytes % 16.1 %; Mean Corpuscular HGB Conc 32.2 g/dL (31.6-35.5); Mean Corpuscular Hemoglobin 33.7 pg (28.0-33.3); Mean Corpuscular Volume 104.9 fL (83.0-100.0); Monocytes # 0.8 K/mcL (0.0-1.3); Monocytes % 8.8 %; Neutrophils # 6.1 K/mcL (1.6-8.9); Platelet Count 224 K/mcL (140-400); Red Blood Count 2.43 M/mcL (4.19-5.50); Red Cell Distribution Width 17.6 % (11.5-14.5); Segmented Neutrophils % 69.5 %
[2021-05-20 21:20] LABS: Albumin 2.9 g/dL (3.5-5.7); Bilirubin,Total 0.3 mg/dL (0.3-1.0); Calcium 8.3 mg/dL (8.6-10.3); Magnesium 1.6 mg/dL (1.6-2.6); Phosphorous 3.2 mg/dL (2.7-4.5); Potassium 3.5 mEq/L (3.5-5.1); Total Protein 5.9 g/dL (6.4-8.9)
[2021-05-20 21:23] LABS: Albumin 2.9 g/dL (3.5-5.7); Calcium 8.3 mg/dL (8.6-10.3); Phosphorous 3.3 mg/dL (2.7-4.5); Potassium 3.5 mEq/L (3.5-5.1)
[2021-05-20 21:30] LABS: Troponin I 0.05 ng/mL (< 0.04)
[2021-05-20 21:39] LABS: Hepatitis B Surface Antibody < 3.10 mIU/mL
[2021-05-20 21:41] LABS: Thyroid Stimulating Hormone 12.758 mcIU/mL (0.340-5.600)
[2021-05-20 21:45] LABS: Folate 21.2 ng/mL (3.0-16.0)
[2021-05-20 21:49] LABS: Hepatitis B Surface Antigen Nonreactive (Nonreactive)
[2021-05-21 02:20] LABS: Hematocrit 22.4 % (37.5-50.1); Hemoglobin 7.6 g/dL (12.9-16.9); Mean Corpuscular HGB Conc 33.9 g/dL (31.6-35.5); Mean Corpuscular Hemoglobin 35.2 pg (28.0-33.3); Mean Corpuscular Volume 103.7 fL (83.0-100.0); Mean Platelet Volume 10.1 fL (9.4-12.4); Platelet Count 210 K/mcL (140-400); Red Blood Count 2.16 M/mcL (4.19-5.50); Red Cell Distribution Width 17.3 % (11.5-14.5); White Blood Count 7.3 K/mcL (4.3-11.1)
[2021-05-21 02:26] LABS: INR 1.1
[2021-05-21 02:39] LABS: Calcium 8.1 mg/dL (8.6-10.3); Potassium 3.4 mEq/L (3.5-5.1)
[2021-05-21] MEDS: Insulin LISPRO 300 UNITS/3 ML VIAL SUBQ SCH ×4 (08:18→20:23)
[2021-05-21] MEDS ORDERED: Ferumoxytol 510 MG in 0.9 % Sodium Chloride 100 ML IVPB ONE (13:10)
[2021-05-21] MEDS ORDERED: Ranolazine 500 MG TAB.ER.12H PO PRN (13:34)
[2021-05-21] MEDS ORDERED: Simethicone 80 MG TAB.CHEW PO PRN (13:34)
[2021-05-21 16:50] LABS: Uric Acid 6.7 mg/dL (2.3-7.6)
[2021-05-21 17:01] LABS: Triiodothyronine (T3) Free 3.04 pg/mL (2.50-3.90)
[2021-05-21] MEDS: Calcium Acetate 667 MG CAPSULE PO SCH ×2 (17:11→20:22)
[2021-05-21] MEDS ORDERED: Perit. Dialysis with Dex 2.5 % 12,000 ML PERITONEAL ONE (19:00)
[2021-05-21] MEDS: Insulin DETEMIR 100 UNIT/ML X5UNITS SUBQ SCH (20:23)
[2021-05-21] MEDS: Budesonide/Formoterol 160/4.5 1 PUFF INH IH SCH (21:37)
[2021-05-22] MEDS: *HR* HYDROcodone/Acet 5/325 mg TABLET PO PRN ×2 (01:29→07:56)
[2021-05-22] MEDS: Melatonin 3 MG TABLET PO PRN (02:59)
[2021-05-22 03:44] LABS: Hematocrit 25.2 % (37.5-50.1); Hemoglobin 8.2 g/dL (12.9-16.9); Mean Corpuscular HGB Conc 32.5 g/dL (31.6-35.5); Mean Corpuscular Hemoglobin 33.5 pg (28.0-33.3); Mean Corpuscular Volume 102.9 fL (83.0-100.0); Mean Platelet Volume 10.6 fL (9.4-12.4); Platelet Count 218 K/mcL (140-400); Red Blood Count 2.45 M/mcL (4.19-5.50); Red Cell Distribution Width 16.8 % (11.5-14.5); White Blood Count 9.8 K/mcL (4.3-11.1)
[2021-05-22 03:54] LABS: Calcium 8.2 mg/dL (8.6-10.3); Potassium 3.2 mEq/L (3.5-5.1)
[2021-05-22] MEDS: Budesonide/Formoterol 160/4.5 1 PUFF INH IH SCH ×2 (07:21→20:23)
[2021-05-22] MEDS ORDERED: 0.9 % Sodium Chloride 250 ML IVC PRN (07:34)
[2021-05-22] MEDS ORDERED: 0.9 % Sodium Chloride 1,000 ML PRIME SCH (07:45)
[2021-05-22] MEDS: Calcium Acetate 667 MG CAPSULE PO SCH ×4 (07:56→16:28)
[2021-05-22] MEDS: Famotidine 20 MG TABLET PO SCH (07:56)
[2021-05-22] MEDS: Aspirin Enteric Coated 81 MG Tablet PO SCH (07:56)
[2021-05-22] MEDS: Cyanocobalamin (B-12) 1,000 MCG TABLET PO SCH (07:56)
[2021-05-22] MEDS: Insulin LISPRO 300 UNITS/3 ML VIAL SUBQ SCH ×4 (07:58→20:20)
[2021-05-22] MEDS: Furosemide 40 MG TABLET PO SCH (11:32)
[2021-05-22] MEDS ORDERED: Cetaphil Lotion 473 ML BOTTLE TP PRN (14:59)
[2021-05-22] MEDS ORDERED: Calcium Acetate 667 MG CAPSULE PO PRN (15:12)
[2021-05-22] MEDS ORDERED: Perit. Dialysis with Dex 2.5 % 6,000 ML PERITONEAL ONE (19:00)
[2021-05-22] MEDS ORDERED: Perit. Dialysis with Dex 4.25% 6,000 ML PERITONEAL SCH (19:00)
[2021-05-22] MEDS: Insulin DETEMIR 100 UNIT/ML X5UNITS SUBQ SCH (20:20)
[2021-05-23 06:05] LABS: Hematocrit 23.9 % (37.5-50.1); Hemoglobin 7.6 g/dL (12.9-16.9); Mean Corpuscular HGB Conc 31.8 g/dL (31.6-35.5); Mean Corpuscular Hemoglobin 33.6 pg (28.0-33.3); Mean Corpuscular Volume 105.8 fL (83.0-100.0); Mean Platelet Volume 10.1 fL (9.4-12.4); Platelet Count 222 K/mcL (140-400); Red Blood Count 2.26 M/mcL (4.19-5.50); Red Cell Distribution Width 16.5 % (11.5-14.5); White Blood Count 9.7 K/mcL (4.3-11.1)
[2021-05-23 06:23] LABS: Calcium 8.3 mg/dL (8.6-10.3); Potassium 3.4 mEq/L (3.5-5.1)
[2021-05-23 06:36] LABS: INR 1.1; Prothrombin Time 12.4 Seconds (9.4-12.1)
[2021-05-23] MEDS: Budesonide/Formoterol 160/4.5 1 PUFF INH IH SCH ×2 (07:44→20:09)
[2021-05-23] MEDS: Insulin LISPRO 300 UNITS/3 ML VIAL SUBQ SCH ×4 (08:02→20:33)
[2021-05-23] MEDS: Aspirin Enteric Coated 81 MG Tablet PO SCH (08:07)
[2021-05-23] MEDS: Furosemide 40 MG TABLET PO SCH (08:07)
[2021-05-23] MEDS: Calcium Acetate 667 MG CAPSULE PO SCH ×3 (08:08→16:55)
[2021-05-23] MEDS: Cyanocobalamin (B-12) 1,000 MCG TABLET PO SCH (08:10)
[2021-05-23] MEDS: Famotidine 20 MG TABLET PO SCH (08:10)
[2021-05-23] MEDS: *HR* HYDROcodone/Acet 5/325 mg TABLET PO PRN (13:26)
[2021-05-23] MEDS ORDERED: Perit. Dialysis with Dex 4.25% 6,000 ML PERITONEAL SCH (19:00)
[2021-05-23] MEDS ORDERED: Perit. Dialysis with Dex 2.5 % 6,000 ML PERITONEAL ONE (19:00)
[2021-05-23] MEDS: Insulin DETEMIR 100 UNIT/ML X5UNITS SUBQ SCH (20:37)
[2021-05-24 05:38] LABS: Calcium 8.7 mg/dL (8.6-10.3); Potassium 3.8 mEq/L (3.5-5.1)
[2021-05-24] MEDS: Budesonide/Formoterol 160/4.5 1 PUFF INH IH SCH ×2 (07:20→20:11)
[2021-05-24] MEDS: Insulin LISPRO 300 UNITS/3 ML VIAL SUBQ SCH ×4 (08:23→21:10)
[2021-05-24] MEDS: Calcium Acetate 667 MG CAPSULE PO SCH ×3 (08:23→17:34)
[2021-05-24] MEDS: Aspirin Enteric Coated 81 MG Tablet PO SCH (08:24)
[2021-05-24] MEDS: Furosemide 40 MG TABLET PO SCH (08:24)
[2021-05-24] MEDS: Famotidine 20 MG TABLET PO SCH (08:24)
[2021-05-24] MEDS: Cyanocobalamin (B-12) 1,000 MCG TABLET PO SCH (08:24)
[2021-05-24] MEDS ORDERED: Perit. Dialysis with Dex 2.5 % 12,000 ML PERITONEAL ONE (19:00)
[2021-05-24] MEDS ORDERED: Perit. Dialysis with Dex 4.25% 6,000 ML PERITONEAL SCH (19:00)
[2021-05-24] MEDS: Insulin DETEMIR 100 UNIT/ML X5UNITS SUBQ SCH (21:09)
[2021-05-25 02:00] LABS: Calcium 8.8 mg/dL (8.6-10.3); Potassium 3.5 mEq/L (3.5-5.1)
[2021-05-25] MEDS: Budesonide/Formoterol 160/4.5 1 PUFF INH IH SCH ×2 (07:30→20:14)
[2021-05-25] MEDS: Insulin LISPRO 300 UNITS/3 ML VIAL SUBQ SCH ×4 (08:47→20:24)
[2021-05-25] MEDS: Aspirin Enteric Coated 81 MG Tablet PO SCH (08:48)
[2021-05-25] MEDS: Calcium Acetate 667 MG CAPSULE PO SCH ×3 (08:48→16:12)
[2021-05-25] MEDS: Cyanocobalamin (B-12) 1,000 MCG TABLET PO SCH (08:48)
[2021-05-25] MEDS: Furosemide 40 MG TABLET PO SCH (08:48)
[2021-05-25] MEDS: Famotidine 20 MG TABLET PO SCH (08:48)
[2021-05-25] MEDS: Perit. Dialysis with Dex 4.25% 6,000 ML PERITONEAL SCH (18:11)
[2021-05-25] MEDS: *HR* HYDROcodone/Acet 5/325 mg TABLET PO PRN (18:30)
[2021-05-25] MEDS ORDERED: Perit. Dialysis with Dex 2.5 % 6,000 ML PERITONEAL ONE (19:00)
[2021-05-25] MEDS: Insulin DETEMIR 100 UNIT/ML X5UNITS SUBQ SCH (20:23)
[2021-05-26] MEDS: Budesonide/Formoterol 160/4.5 1 PUFF INH IH SCH ×2 (07:51→20:06)
[2021-05-26 08:53] LABS: Calcium 8.5 mg/dL (8.6-10.3)
[2021-05-26] MEDS: Famotidine 20 MG TABLET PO SCH (09:09)
[2021-05-26] MEDS: Furosemide 40 MG TABLET PO SCH (09:10)
[2021-05-26] MEDS: Cyanocobalamin (B-12) 1,000 MCG TABLET PO SCH (09:10)
[2021-05-26] MEDS: Aspirin Enteric Coated 81 MG Tablet PO SCH (09:10)
[2021-05-26] MEDS: Insulin LISPRO 300 UNITS/3 ML VIAL SUBQ SCH ×4 (09:11→19:49)
[2021-05-26] MEDS: Calcium Acetate 667 MG CAPSULE PO SCH ×3 (09:11→17:26)
[2021-05-26] MEDS ORDERED: Perit. Dialysis with Dex 2.5 % 12,000 ML PERITONEAL ONE (19:00)
[2021-05-26] MEDS: Insulin DETEMIR 100 UNIT/ML X5UNITS SUBQ SCH (19:49)
[2021-05-26] MEDS: Perit. Dialysis with Dex 4.25% 6,000 ML PERITONEAL SCH (20:28)
[2021-05-26] MEDS: *HR* HYDROcodone/Acet 5/325 mg TABLET PO PRN (22:50)
[2021-05-26] MEDS ORDERED: hydrOXYzine pamoate 25 MG CAPSULE PO ONE (23:02)
[2021-05-27 01:18] LABS: Basophils # 0.1 K/mcL (0.0-0.2); Basophils % 0.6 %; Eosinophils # 0.7 K/mcL (0.0-0.6); Eosinophils % 6.2 %; Hematocrit 27.2 % (37.5-50.1); Hemoglobin 8.9 g/dL (12.9-16.9); Immature Granulocytes % 1.4 % (0-4); Lymphocytes # 1.5 K/mcL (0.6-4.6); Lymphocytes % 12.9 %; Mean Corpuscular HGB Conc 32.7 g/dL (31.6-35.5); Mean Corpuscular Volume 107.1 fL (83.0-100.0); Mean Platelet Volume 9.9 fL (9.4-12.4); Monocytes % 8.3 %; Neutrophils # 8.1 K/mcL (1.6-8.9); Platelet Count 257 K/mcL (140-400); Red Blood Count 2.54 M/mcL (4.19-5.50); Red Cell Distribution Width 16.2 % (11.5-14.5); Segmented Neutrophils % 70.6 %; White Blood Count 11.4 K/mcL (4.3-11.1)
[2021-05-27 01:22] LABS: Prothrombin Time 11.7 Seconds (9.4-12.1)
[2021-05-27 01:42] LABS: Calcium 9.2 mg/dL (8.6-10.3); Potassium 3.4 mEq/L (3.5-5.1)
[2021-05-27] MEDS ORDERED: 0.9 % Sodium Chloride 250 ML IVC PRN (07:16)
[2021-05-27] MEDS ORDERED: 0.9 % Sodium Chloride 1,000 ML PRIME SCH (07:30)
[2021-05-27] MEDS ORDERED: 0.9 % Sodium Chloride 500 ML ONE (07:40)
[2021-05-27] MEDS: Furosemide 40 MG TABLET PO SCH (07:47)
[2021-05-27] MEDS: Calcium Acetate 667 MG CAPSULE PO SCH ×3 (07:47→17:25)
[2021-05-27] MEDS: Budesonide/Formoterol 160/4.5 1 PUFF INH IH SCH ×2 (07:50→20:16)
[2021-05-27] MEDS: Insulin LISPRO 300 UNITS/3 ML VIAL SUBQ SCH ×4 (08:09→21:12)
[2021-05-27] MEDS ORDERED: *HR* FentaNYL (PF) 100 MCG/2 ML VIAL ONE (08:47)
[2021-05-27] MEDS ORDERED: *HR* Midazolam HCl 2 MG/2 ML VIAL ONE (08:47)
[2021-05-27] MEDS ORDERED: *HR* Heparin 5,000 UNIT/ML VIAL ONE ×2 (08:51→09:30)
[2021-05-27] MEDS ORDERED: *HR* Midazolam HCl 2 MG/2 ML VIAL IVP ONE (09:02)
[2021-05-27] MEDS ORDERED: *HR* FentaNYL (PF) 100 MCG/2 ML VIAL IVP ONE (09:02)
[2021-05-27] MEDS ORDERED: CeFAZolin 2,000MG/50ML DUPLEX 2,000 MG/50 ML BAG IVPB ONE (10:00)
[2021-05-27] MEDS: Aspirin Enteric Coated 81 MG Tablet PO SCH (12:17)
[2021-05-27] MEDS: Famotidine 20 MG TABLET PO SCH (12:18)
[2021-05-27] MEDS: Cyanocobalamin (B-12) 1,000 MCG TABLET PO SCH (12:19)
[2021-05-27] MEDS ORDERED: *HR* Heparin 10,000 UNIT/10 ML VIAL IV PRN (13:39)
[2021-05-27] MEDS: Insulin DETEMIR 100 UNIT/ML X5UNITS SUBQ SCH (21:13)
[2021-05-28] MEDS: *HR* HYDROcodone/Acet 5/325 mg TABLET PO PRN ×2 (00:52→11:27)
[2021-05-28] MEDS: Insulin LISPRO 300 UNITS/3 ML VIAL SUBQ SCH ×4 (08:48→21:27)
[2021-05-28] MEDS: Furosemide 40 MG TABLET PO SCH (08:50)
[2021-05-28] MEDS: Cyanocobalamin (B-12) 1,000 MCG TABLET PO SCH (08:50)
[2021-05-28] MEDS: Famotidine 20 MG TABLET PO SCH (08:50)
[2021-05-28] MEDS: Aspirin Enteric Coated 81 MG Tablet PO SCH (08:50)
[2021-05-28] MEDS: Calcium Acetate 667 MG CAPSULE PO SCH ×3 (08:51→16:56)
[2021-05-28] MEDS: Budesonide/Formoterol 160/4.5 1 PUFF INH IH SCH ×2 (10:54→20:01)
[2021-05-28 11:24] LABS: Calcium 8.6 mg/dL (8.6-10.3)
[2021-05-28] MEDS: Insulin DETEMIR 100 UNIT/ML X5UNITS SUBQ SCH (21:25)
[2021-05-29 05:44] LABS: Calcium 8.3 mg/dL (8.6-10.3); Potassium 4.7 mEq/L (3.5-5.1)
[2021-05-29] MEDS ORDERED: 0.9 % Sodium Chloride 250 ML IVC PRN (07:20)
[2021-05-29] MEDS: Cyanocobalamin (B-12) 1,000 MCG TABLET PO SCH (07:35)
[2021-05-29] MEDS: Famotidine 20 MG TABLET PO SCH (07:35)
[2021-05-29] MEDS: Aspirin Enteric Coated 81 MG Tablet PO SCH (07:35)
[2021-05-29] MEDS: Furosemide 40 MG TABLET PO SCH (07:36)
[2021-05-29] MEDS: Insulin LISPRO 300 UNITS/3 ML VIAL SUBQ SCH ×4 (07:36→21:34)
[2021-05-29] MEDS: Acetaminophen 325 MG TABLET PO PRN ×2 (07:47→21:34)
[2021-05-29] MEDS: Calcium Acetate 667 MG CAPSULE PO SCH ×3 (08:14→17:05)
[2021-05-29 10:09] LABS: Bilirubin,Urine Negative (Negative); Blood,Urine Small (Negative); Clarity,Urine Clear (Clear); Color,Urine Light-Yellow (Yellow); Glucose,Urine (UA) >=1000 mg/dL (Normal); Ketones,Urine Negative (Negative); Leukocyte Esterase,Urine Negative (Negative); Nitrite,Urine Negative (Negative); Protein,Urine >=600 mg/dL (Neg-Trace); Specific Gravity,Urine 1.017 (1.010-1.025); Urobilinogen,Urine Normal (Normal); WBC,Urine 15-30 per hpf (0-3)
[2021-05-29] MEDS: Budesonide/Formoterol 160/4.5 1 PUFF INH IH SCH ×2 (10:25→20:09)
[2021-05-29] MEDS ORDERED: *HR* Heparin 10,000 UNIT/10 ML VIAL ONE (12:32)
[2021-05-29] MEDS: Insulin DETEMIR 100 UNIT/ML X5UNITS SUBQ SCH (21:34)
[2021-05-30 06:05] LABS: Hematocrit 25.5 % (37.5-50.1); Mean Corpuscular HGB Conc 31.4 g/dL (31.6-35.5); Mean Corpuscular Hemoglobin 33.6 pg (28.0-33.3); Mean Corpuscular Volume 107.1 fL (83.0-100.0); Mean Platelet Volume 10.2 fL (9.4-12.4); Platelet Count 238 K/mcL (140-400); Red Blood Count 2.38 M/mcL (4.19-5.50); Red Cell Distribution Width 15.9 % (11.5-14.5); White Blood Count 7.8 K/mcL (4.3-11.1)
[2021-05-30 06:27] LABS: Potassium 3.5 mEq/L (3.5-5.1)
[2021-05-30] MEDS: Aspirin Enteric Coated 81 MG Tablet PO SCH (08:09)
[2021-05-30] MEDS: Furosemide 40 MG TABLET PO SCH (08:10)
[2021-05-30] MEDS: Calcium Acetate 667 MG CAPSULE PO SCH ×2 (08:10→11:47)
[2021-05-30] MEDS: Cyanocobalamin (B-12) 1,000 MCG TABLET PO SCH (08:10)
[2021-05-30] MEDS: Famotidine 20 MG TABLET PO SCH (08:10)
[2021-05-30] MEDS: Insulin LISPRO 300 UNITS/3 ML VIAL SUBQ SCH ×2 (08:11→11:48)
[2021-05-30] MEDS: Perit. Dialysis with Dex 4.25% 6,000 ML PERITONEAL SCH (10:22)
[2021-05-30] MEDS: Budesonide/Formoterol 160/4.5 1 PUFF INH IH SCH (10:59)
[2021-05-30 11:16] VITALS: O2SAT 99
[2021-05-30 16:00] VITALS: BP 163/73; PULSE 72; TEMP 97.8
[2021-05-30 17:14] LABS: Adenovirus Not Detected (Not Detect); Bordetella Pertussis Not Detected (Not Detect); Chlamydophila pneumoniae Not Detected (Not Detect); Coronavirus 229E Not Detected (Not Detect); Coronavirus HKU1 Not Detected (Not Detect); Coronavirus NL63 Not Detected (Not Detect); Coronavirus OC43 Not Detected (Not Detect); Human Metapneumovirus Not Detected (Not Detect); Human Rhinovirus/Enterovirus Not Detected (Not Detect); Influenza A Subtype 2009 H1 Not Detected (Not Detect); Influenza B Not Detected (Not Detect); Mycoplasma pneumoniae Not Detected (Not Detect); Parainfluenza Virus 1 Not Detected (Not Detect); Parainfluenza Virus 2 Not Detected (Not Detect); Parainfluenza Virus 3 Not Detected (Not Detect); Parainfluenza Virus 4 Not Detected (Not Detect); Respiratory Syncytial Virus Not Detected (Not Detect); SARS-CoV-2 Not Detected (Not Detect)
== END 2021-05-30 19:06 | disposition other institution (70) | DRG 947 ==
LOC: 2ANU → SUATTDRO 17:29
PROVIDERS: ADMIT Family Medicine; ATTEND Internal Medicine